=== PATIENT | female | born 1970 | race Caucasian/White ===

== ENCOUNTER 2023-12-28 08:51 | Outpatient (RCR) | payer OTHER, SELFPAY | END 2024-01-29 12:19 | disposition home or self-care (01) | LOC: PT 08:51 | PROVIDERS: PCP Family Medicine; Visit Provider Family Medicine | DX: M25.512 Pain in left shoulder (principal) | CPT/HCPCS: 97014; 97035; 97110; 97140; 97161 ==

== ENCOUNTER 2024-01-20 20:35 | Outpatient (REF) | payer OTHER, SELFPAY ==
[2024-01-25 16:09] LABS: Age Gdln ACOG Testing Note (.); HPV Aptima Negative (Negative); IGP, Aptima HPV, rfx 16/18,45 Note (.)
== END 2024-01-20 20:36 | disposition home or self-care (01) ==
LOC: LAB 20:35
PROVIDERS: PCP Family Medicine; Visit Provider Physician Assistant
DX: Z01.419 Encounter for gynecological examination (general) (routine) without abnormal findings (principal)
CPT/HCPCS: 87624; G0145

== ENCOUNTER 2024-02-15 15:38 | Outpatient (OUT) | payer OTHER, SELFPAY ==
--- NOTE | 2024-02-15 15:41 | XR_ITS ---
[address] [address] Patient Name: MEREDITH BAILEY MRN: [id number] date: 1970 Sex: F Assigned Patient Location: [facility] Current Patient Location: [facility] Accession/Order Number: [id number] Exam Date: 02/15/2024 16:00 Report Date: 02/15/2024 20:10 At the request of: DARINEL CASTILLO Procedure: XR DEXA axial skeleton EXAM: XR DEXA axial skeleton HISTORY: Postmenopausal state; Z78.0. COMPARISON: None. TECHNIQUE: Routine DEXA scan lumbar spine and bilateral hips. FINDINGS: L1-L4: BMD 1.153 g/sq cm and T score -0.2. Left femoral neck: BMD 0.874 g/sq cm and T score -1.2. Left hip total: BMD 1.015 g/sq cm and T score 0.1. Right femoral neck: BMD 0.912 g/sq cm and T score -0.9. Right hip total: BMD 1.060 g/sq cm and T score 0.4. XR/XR DEXA axial skeleton IMPRESSION: Osteopenia. Electronically authenticated by: MILI GUZMÁN Date: 02/15/2024 20:10
--- NOTE | 2024-02-15 15:41 | MM_ITS ---
Patient Name: MEREDITH BAILEY MR#: [id number] : 1970 Exam Date: 02/15/2024 Ordering Doctor: AIDAN CASTILLO . RADIOLOGY REPORT PROCEDURE: MM TOMOSYNTHESIS SCREENING BI COMPARISON: None. INDICATIONS: screening Calculator Name NCI Breast Cancer Risk Assessment Tool 5 Year Breast Cancer Risk 0.90% Lifetime Breast Cancer Risk 6.80% Personal Breast Cancer No Personal Ovarian Cancer No Treatments None Family Cancers Father with colon cancer at age 60. LOCATION: [facility] BREAST COMPOSITION: Heterogeneously dense,which may obscure small masses. FINDINGS: DIAGNOSTIC CATEGORY 2--BENIGN FINDING. NO CHANGE FROM COMPARISON. Scattered benign-appearing nodules are present. Scattered benign-appearing calcifications are present. Scattered benign-appearing lymph nodes are present. RIGHT BREAST: No significant suspicious finding. LEFT BREAST: No significant suspicious finding. RECOMMENDATIONS: ROUTINE MAMMOGRAM AND CLINICAL EVALUATION IN 12 MONTHS. PLEASE NOTE: A NORMAL MAMMOGRAM DOES NOT EXCLUDE THE POSSIBILITY OF BREAST CANCER. A CLINICALLY SUSPICIOUS PALPABLE LUMP SHOULD BE BIOPSIED. Dictated by: Dionicio Diop MD on 02/16/2024 at 09:57 Approved by: Dionicio Diop MD on 02/16/2024 at 09:59
--- OUTSIDE RECORDS SUMMARY | 2024-02-15 16:03 | XMS_ITS | CCD ---
Author Organization [facility] Care Team Providers Care Chucking Machine Set Up Operator Tool Name Role Phone Glenn Mar Primary Care Physician DARINEL CASTILLO Attending Unavailable MD Glenn Mar Attending Unavailable MD Glenn Mar Attending Unavailable MD Glenn Mar Attending Unavailable MD Glenn Mar Admitting Unavailable MD Glenn Mar Referring Unavailable MD Glenn Mar Attending Unavailable Medications Current Medications Medication Drug Class(es) Dates Sig (Normalized) Sig (Original) naproxen 500 mg oral tablet (1 source) Nonsteroidal Anti-inflammatory Drug Start: 12-21-2023 take 1 tablet by mouth twice daily naproxen 500 mg Tab 500 mg = 1 tab(s), Oral, BID, # 60 tab(s), Refills(s) 0, Pharmacy: [facility]/pharm[facility] #[id number], 159, cm, 12/21/23 10:41:00 EST, Height/Length Dosing, 79.9, kg, 12/21/23 10:41:00 EST, Weight Dosing Start Date: 12/21/23 Status: Ordered omeprazole 40 mg delayed release oral capsule (1 source) Proton Pump Inhibitor Start: 12-21-2023 take 1 capsule by mouth once daily omeprazole 40 mg Cap-DR 40 mg = 1 cap(s), Oral, Daily, # 90 cap(s), Refills(s) 0, Pharmacy: [facility]/pharm[facility] #[id number], 159, cm, 12/21/23 10:41:00 EST, Height/Length Dosing, 79.9, kg, 12/21/23 10:41:00 EST, Weight Dosing Start Date: 12/21/23 Status: Ordered Problems Problem Classification Problem Date Documented Da te Episodic/Chronic Esophageal disorders (1 source) Gastroesophageal reflux disease without esophagitis 12-21-2023 Chronic Other circulatory disease (1 source) Elevated blood-pressure reading without diagnosis of hypertension 12-21-2023 Episodic Other connective tissue disease (1 source) Biceps tendinitis 12-21-2023 Episodic Other connective tissue disease (1 source) Trochanteric bursitis 12-21-2023 Episodic Substance-related disorders (1 source) Cigarette smoker 12-21-2023 Chronic Unclassified (1 source) Pain of left shoulder region 12-21-2023 Unclassified (1 source) Patient encounter status 12-21-2023 Results Test Name Value Interpretation Reference Range Facil ity Ambulatory Visit Summaryon 0 01-31-2024 Ambulatory Visit Summary MEREDITH BAILEY :1970 Visit Date:01/31/2024 Ambulatory Visit Instructions Your Diagnosis HTN (hypertension) BMI 33.0-33.9,adult Class 1 obesity due to excess calories in adult Former smoker GERD without esophagitis Your Care Team Attending Physician - Glenn Mar MD Primary Care Physician - Glenn Mar MD This Is Your Medications List losartan (losartan 100 mg Tab) Contact prescribing physician if questions or concerns naproxen (naproxen 500 mg Tab) omeprazole (omeprazole 40 mg Cap-DR) Procedures Performed Appendectomy, Tonsillectomy. Discharge Vitals Temperature (Temporal Artery) 36.3 ?C Heart Rate (Peripheral) 82 Respiratory Rate 16 Blood Pressure 150/94 Height 159 cm Height 63 in Weight 84.3 kg Weight 185.46 lb BMI 33.35 What to do next Scheduled Follow-Up Appointments Wednesday 3:45 PM EDT With: Glenn Mar MD Where: [facility] [place] [facility] Family Medicine Office/Clini c Noteon 01-31-2024 Family Medicine Office/Clinic Note HPI Staff Meredith is a 53 year old female presenting for follow up gerd and bp Here for follow up on GERD. Melena? no Dysphagia? no Weight loss? no Persistent vomiting? no Have you ever had an EGD? no Refill needed?: no Patient is here for follow up bp, OLIVERIO elevated but patient was in pain and new to the practice. If elevated today to start losartan How often are you checking your blood pressure? Doesnt check BP at home What are your average readings? N/A, Not checking at home Yearly BMP: none flu: refused. questions/concerns: had her yearly pap and at gyne office BP was still high has a bump on her left heel, been there for months, sometimes painful, what can she do about it? showed it to you at last OV would like the results of her scan negative, I advised her. she saw it on the portal but wasn't sure History of Present Illness - GERD has improved - Still having issues with pain in the L shoulder and L heel. - BPs are elevated. Review of Systems PHQ Score Initial Depression Screen Score: 0 SCORE Physical Exam Vitals & Measurements T: 36.3 ?C(Temporal Artery) HR: 82(Peripheral) RR: 16 BP: 150/94 SpO2: 98% HT: 63 in HT: 159 cm WT: 84.3 kg WT: 185.46 lb BMI: 33.35 General: alert, no acute distress ENMT: oral mucosa moist, Cardiovascular: regular rate and rhythm, normal peripheral perfusion Respiratory: Lungs CTA, respirations non labored Extremities: no deformity, no trauma Neurological: oriented x 4, LOC appropriate for age, CN II-XII intact, motor strength equal & normal bilaterally, speech normal, Diminished ROM of the L shoulder. Abdomen: Soft, Nontender, Non-distended, + BS Assessment/Plan 1. HTN (hypertension) (I10: Essential (primary) hypertension) - Still elevated. - Will start Losartan 2. Shoulder pain, left (M25.512: Pain in left shoulder) - Will send to ortho for injections. - This way the heel and the shoulder can be injected. - Pt has multiple areas of pain as well. 3. GERD without esophagitis (K21.9: Gastro-esophageal reflux disease without esophagitis) - Well controlled at this time. 4. BMI 33.0-33.9,adult (Z68.33: Body mass index [BMI] 33.0-33.9, adult) - BMI education given 5. Class 1 obesity due to excess calories in adult (E66.09: Other obesity due to excess calories) - Diet and exercise advised 6. Former smoker (Z87.891: Personal history of nicotine dependence) - Please continue to not smoke. Orders: losartan, 100 mg = 1 tab(s), Oral, Daily, # 90 tab(s), Refills(s) 0, Pharmacy: [facility]/pharmacy #[id number], 159, cm, 01/31/24 15:55:00 EST, Height/Length Dosing, 84.3, kg, 01/31/24 15:55:00 EST, Weight Dosing Follow-up No qualifying data available Patient Education BMI for Adults Problem List/Past Medical History Ongoing Biceps tendinitis Cigarette smoker within last 12 months Colon cancer screening GERD without esophagitis Greater trochanteric bursitis of left hip HTN (hypertension) Shoulder pain, left Historical No qualifying data Procedure/Surgical History Appendectomy, Tonsillectomy. Medications losartan 100 mg Tab, 100 mg= 1 tab(s), Oral, Daily naproxen 500 mg Tab, See Instructions omeprazole 40 mg Cap-DR, 40 mg= 1 cap(s), Oral, Daily Allergies No Known Allergies Social History Tobacco Former smoker, quit more than 30 days ago Tobacco Use:. Cigarettes, Household tobacco concerns: No., 01/31/2024 Family History Cancer: Father. Diabetes mellitus type 2: Father. Hypertension: Mother. Primary malignant neoplasm of colon: Father. Immunizations Vaccine Date Status SARS-CoV-2 (COVID-19) mRNA BNT-162b2 vax 04/03/2021 Recorded SARS-CoV-2 (COVID-19) mRNA BNT-162b2 vax 03/13/2021 Recorded [facility] Comment on above: Result Comment: Elec tronically Signed By: Zaid SPIVEY, Glenn Jean\.br\Date and Time Signed: 01/31/24 16:22 EST PT - Progress Noteson 2023 PT - Progress Notes [id number] #1.00TIFF [facility] Patient Educationon 01-31-20 24 Patient Education Nutrition BMI for Adults What is BMI? Body mass index (BMI) is a number that is calculated from a person's weight and height. BMI can help estimate how much of a person's weight is composed of fat. BMI does not measure body fat directly. Rather, it is an alternative to procedures that directly measure body fat, which can be difficult and expensive. BMI can help identify people who may be at higher risk for certain medical problems. What are BMI measurements used for? BMI is used as a screening tool to identify possible weight problems. It helps determine whether a person is obese, overweight, a healthy weight, or underweight. BMI is useful for: ? Identifying a weight problem that may be related to a medical condition or may increase the risk for medical problems. ? Promoting changes, such as changes in diet and exercise, to help reach a healthy weight. BMI screening can be repeated to see if these changes are working. How is BMI calculated? BMI involves measuring your weight in relation to your height. Both height and weight are measured, and the BMI is calculated from those numbers. This can be done either in [place]ese ([place] or metric measurements. Note that charts and online BMI calculators are available to help you find your BMI quickly and easily without having to do these calculations yourself. To calculate your BMI in [place]ese ([place] measurements: 1. Measure your weight in pounds (lb). 2. Multiply the number of pounds by 703. ? For example, for a person who weighs 180 lb, multiply that number by 703, which equals 126,540. 3. Measure your height in inches. Then multiply that number by itself to get a measurement called inches squared. ? For example, for a person who is 70 inches tall, the inches squared measurement is 70 inches x 70 inches, which equals 4,900 inches squared. 4. Divide the total from step 2 (number of lb x 703) by the total from step 3 (inches squared): 126,540 ? 4,900 = 25.8. This is your BMI. To calculate your BMI in metric measurements: 1. Measure your weight in kilograms (kg). 2. Measure your height in meters (m). Then multiply that number by itself to get a measurement called meters squared. ? For example, for a person who is 1.75 m tall, the meters squared measurement is 1.75 m x 1.75 m, which is equal to 3.1 meters squared. 3. Divide the number of kilograms (your weight) by the meters squared number. In this example: 70 ? 3.1 = 22.6. This is your BMI. What do the results mean? BMI charts are used to identify whether you are underweight, normal weight, overweight, or obese. The following guidelines will be used: ? Underweight: BMI less than 18.5. ? Normal weight: BMI between 18.5 and 24.9. ? Overweight: BMI between 25 and 29.9. ? Obese: BMI of 30 or above. Keep these notes in mind: ? Weight includes both fat and muscle, so someone with a muscular build, such as an athlete, may have a BMI that is higher than 24.9. In cases like these, BMI is not an accurate measure of body fat. ? To determine if excess body fat is the cause of a BMI of 25 or higher, further assessments may need to be done by a health care provider. ? BMI is usually interpreted in the same way for men and women. Where to find more information For more information about BMI, including tools to quickly calculate your BMI, go to these websites: ? Centers for Disease Control and Prevention: www.cdc.gov ? [place] Heart Association: www.heart.org ? National Heart, Lung, and Blood [place]: www.nhlbi.nih.gov Summary ? Body mass index (BMI) is a number that is calculated from a person's weight and height. ? BMI may help estimate how much of a person's weight is composed of fat. BMI can help identify those who may be at higher risk for certain medical problems. ? BMI can be measured using Burmese measurements or metric measurements. ? BMI charts are used to identify whether you are underweight, normal weight, overweight, or obese. This information is not intended to replace advice given to you by your health care provider. Make sure you discuss any questions you have with your health care provider. Document Revised: 08/07/2020 Document Reviewed: 06/14/2020 MD [facility] Patient Education ? 2022 [employer]. [facility] CT Chest, Low Dose Screening on 12-31-2023 CT Chest, Low Dose Screening Exam Date/Time: 12/31/2023 09:00 EST Reason for Exam: Z87.891;Screening Report IMPRESSION: LUNG RADS CATEGORY 1: NEGATIVE. NO NODULES AND/OR DEFINITELY BENIGN NODULES. CONTINUE ANNUAL SCREENING WITH SCREENING CT CHEST IN [address] IMAGING OF THE CHEST WITHOUT INTRAVENOUS CONTRAST MEDIUM. HISTORY: Tobacco use. TECHNICAL FACTORS: Low dose CT imaging of the chest was obtained and formatted as 2.5 mm contiguous axial images from the thoracic inlet through the adrenal glands. Sagittal and coronal reconstructions obtained during postprocessing. Intravenous contrast medium: None. Comparison: None FINDINGS: Right lung: No nodules, masses, consolidation, pleural effusion, pneumothorax. Left lung: No nodules, masses, consolidation, pleural effusion, pneumothorax. Lymph nodes: No hilar, mediastinal, or axillary lymph node enlargement. Thoracic aorta: Normal in course and caliber. Cardiac: Size normal. No pericardial effusion. No coronary artery calcification. Upper abdomen:Limited imaging upper abdomen shows small hiatal hernia. Musculoskeletal:No osteoblastic, and no osteolytic lesions. All CT scans at this facility use dose modulation, iterative reconstruction, and/or weight based dosing when appropriate to reduce radiation dose to as low as reasonably achievable. Report Ordering Provider: Glenn Mar FINAL REPORT Dictated: 12/31/2023 2:43 pm Eron Oliver MD Signed (Electronic Signature): 12/31/2023 2:43 pm Signed by: Eron Oliver MD Transcribed by: ELIEZER Technologist: GENEVIEVE [facility] Consent for Treatmenton Consent for Treatment [id number] #1.00TIFF [facility] Plan of Care - PT/OT/Speecho n 12-30-2023 Plan of Care - PT/OT/Speech [id number] #1.00TIFF [facility] Family Medicine Office/Clini c Noteon 12-23-2023 Family Medicine Office/Clinic Note HPI Staff Meredith is a 53 year old female presenting to [facility] care Establish Care: History: Any previous diagnosis: Asthma Childhood History of seeing any specialist: When was your last doctors visit: Last provider: none in 20 years Any recent labs: none in over 20 years Health Maintenance UTD: Colonoscopy: no Mammogram: over 10 years, normal Pelvic/Pap: over 10 years . has one set up for 01/02/24 flu: Refused Acute: Current issues/complaints: Pt states 01/2023 started having dull ache in chest and feeling tired would lay down and then sleep for a few hours wake up and feel better. Did have some numbness to left hand/wrist a few times when she has the chest discomfort. Pt does states has had long time over 25 years dealing with acid reflux and it has been getting worse having it daily and has been taking tums when to bad usually 3 times a week other than that she suffers through it. She has vomited a few times when it was bad. With eating intermittently will feel like things get stuff middle chest (meat, bread) will drink more water and it hurts and can feel the food going down. Burning middle chest is getting worse and when applying pressure to mid chest it does ease the burning. Pt feeling extremely fatigued. Pt stopped smoking 12/21/23 has been smoking since she was 14 2 months ago noticed lump left back of foot c/o pain with touch or any pressure. Pt having Left hip pain and left shoulder pain History of Present Illness Meredith Bailey is a 53-year-old female who presents today for an evaluation. The patient has been experiencing issues with GERD for a long time. Whenever she gets heartburn, she can feel it in her lower chest, stomach, and rib cage and tends to go all the way up. She has vomited in the past due to GERD. She states that she drinks alcohol occasionally but drinks a lot of tea and root beer. She used to drink a lot of soda but has quit drinking it. She mentions that she drinks water or tea most of the time. The patient fell on ice on her parents' concrete steps back in the s. She landed on her left elbow and has had trouble with it ever since. She is feeling pain in her clavicle, and it occasionally aches at night. She reports never going to the doctor then. 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 Her movements at work are different depending on the task but she is usually pulling. She cannot wear a bra because it puts pressure on her arm making it go numb. She is left-handed. The patient also reports pain in her left hip. The patient also has experienced occasional heel pain in the last couple of months. She reports that pain is occasionally exacerbated by movements, usually when at work wearing her work shoes. She only looked at the area when it started hurting. The patient's blood pressure is elevated today. She does not check her blood pressure at home. She reports feeling tired all the time but has no other concerns at this time. She has not seen a doctor in the past 20 years. The patient has quit smoking. Review of Systems PHQ Score Initial Depression Screen Score: 0 SCORE Physical Exam Vitals & Measurements HR: 86(Peripheral) RR: 18 BP: 168/102 SpO2: 98% HT: 63 in HT: 159 cm WT: 79.9 kg WT: 175.78 lb BMI: 31.6 General: alert, no acute distress Cardiovascular: regular rate and rhythm, normal peripheral perfusion Respiratory: Lungs CTA, respirations non labored Extremities: no deformity, no trauma Neurological: oriented x 4, LOC appropriate for age, CN II-XII intact, motor strength equal & normal bilaterally, speech normal Musculoskeletal: The patient is tender to palpation over the bicipital groove. The patient is tender to palpation over the left greater trochanteric bursa on the left bicipital groove. Procedure S Assessment/Plan 1. GERD without esophagitis (K21.9: Gastro-esophageal reflux disease without esophagitis) At this time, we will start with a PPI. Discussed how to use the PPI. Discussed diet and exercise changes and lifestyle modification that will help with GERD. We will check the patient back in 2 to 6 weeks depending on what fits with her schedule. 2. Elevated BP without diagnosis of hypertension (R03.0: Elevated blood-pressure reading, without diagnosis of hypertension) We will hold off on starting any blood pressure medication. This is the first time the patient has seen me, and the patient is in pain. If the patient's blood pressure is still elevated at that next visit, we will start losartan and we will probably go to a 2-combo medication depending on if the systolic is still above 160 mmHg and if the diastolic is still above 100 mmHg. 3. Greater trochanteric bursitis of left hip (M70.62: Trochanteric bursitis, left hip) We will do naproxen at this time. Discussed naproxen and omeprazole and how it can cause worsening of GERD. Discussed how the omeprazole may need to be increased moving forward. 4. Biceps tendinitis (M75.20: Bicipital tendinitis, uns (more content not included)... [facility] Comment on above: Result Comment: Elec tronically Signed By: Glenn Mar MD\.br\Date and Time Signed: 12/23/23 11:45 EST\.br\Electronically Co-Signed By: Angie Chand\.br\Date and Time Co-Signed: 12/21/23 14:00 EST\.br\Electronically Co-Signed By: Harmony Smith.br\Date and Time Co-Signed: 12/22/23 10:45 EST Insurance Correspondenceon 0 12-23-2023 Insurance Correspondence [id number]#1.00TIFF [facility] Physician Orderon 12-23-2023 Physician Order [id number] #1.00TIFF [facility] Ambulatory Visit Summaryon 0 12-21-2023 Ambulatory Visit Summary MEREDITH BAILEY :1970 [id number] Visit Date:12/21/2023 Ambulatory Visit Instructions Your Diagnosis BMI 31.0-31.9,adult Non-smoker GERD without esophagitis Colon cancer screening Elevated BP without diagnosis of hypertension Your Care Team Attending Physician - Glenn Mar MD Primary Care Physician - Glenn Mar MD Procedures Performed Appendectomy, Tonsillectomy. Discharge Vitals Heart Rate (Peripheral) 86 Respiratory Rate 18 Blood Pressure 168/102 Height 159 cm Height 63 in Weight 79.9 kg Weight 175.78 lb BMI 31.6 What to do next Scheduled Follow-Up Appointments Wednesday 4:00 PM EST With: Glenn Mar MD Where: [facility] Patient Educationon 12-21-19 Patient Education Nutrition BMI for Adults What is BMI? Body mass index (BMI) is a number that is calculated from a person's weight and height. BMI can help estimate how much of a person's weight is composed of fat. BMI does not measure body fat directly. Rather, it is an alternative to procedures that directly measure body fat, which can be difficult and expensive. BMI can help identify people who may be at higher risk for certain medical problems. What are BMI measurements used for? BMI is used as a screening tool to identify possible weight problems. It helps determine whether a person is obese, overweight, a healthy weight, or underweight. BMI is useful for: ? Identifying a weight problem that may be related to a medical condition or may increase the risk for medical problems. ? Promoting changes, such as changes in diet and exercise, to help reach a healthy weight. BMI screening can be repeated to see if these changes are working. How is BMI calculated? BMI involves measuring your weight in relation to your height. Both height and weight are measured, and the BMI is calculated from those numbers. This can be done either in [place]ese ([place] or metric measurements. Note that charts and online BMI calculators are available to help you find your BMI quickly and easily without having to do these calculations yourself. To calculate your BMI in [place] ([place] measurements: 1. Measure your weight in pounds (lb). 2. Multiply the number of pounds by 703. ? For example, for a person who weighs 180 lb, multiply that number by 703, which equals 126,540. 3. Measure your height in inches. Then multiply that number by itself to get a measurement called inches squared. ? For example, for a person who is 70 inches tall, the inches squared measurement is 70 inches x 70 inches, which equals 4,900 inches squared. 4. Divide the total from step 2 (number of lb x 703) by the total from step 3 (inches squared): 126,540 ? 4,900 = 25.8. This is your BMI. To calculate your BMI in metric measurements: 1. Measure your weight in kilograms (kg). 2. Measure your height in meters (m). Then multiply that number by itself to get a measurement called meters squared. ? For example, for a person who is 1.75 m tall, the meters squared measurement is 1.75 m x 1.75 m, which is equal to 3.1 meters squared. 3. Divide the number of kilograms (your weight) by the meters squared number. In this example: 70 ? 3.1 = 22.6. This is your BMI. What do the results mean? BMI charts are used to identify whether you are underweight, normal weight, overweight, or obese. The following guidelines will be used: ? Underweight: BMI less than 18.5. ? Normal weight: BMI between 18.5 and 24.9. ? Overweight: BMI between 25 and 29.9. ? Obese: BMI of 30 or above. Keep these notes in mind: ? Weight includes both fat and muscle, so someone with a muscular build, such as an athlete, may have a BMI that is higher than 24.9. In cases like these, BMI is not an accurate measure of body fat. ? To determine if excess body fat is the cause of a BMI of 25 or higher, further assessments may need to be done by a health care provider. ? BMI is usually interpreted in the same way for men and women. Where to find more information For more information about BMI, including tools to quickly calculate your BMI, go to these websites: ? Centers for Disease Control and Prevention: www.cdc.gov ? [place] Heart Association: www.heart.org ? National Heart, Lung, and Blood [place]: www.nhlbi.nih.gov Summary ? Body mass index (BMI) is a number that is calculated from a person's weight and height. ? BMI may help estimate how much of a person's weight is composed of fat. BMI can help identify those who may be at higher risk for certain medical problems. ? BMI can be measured using Burmese measurements or metric measurements. ? BMI charts are used to identify whether you are underweight, normal weight, overweight, or obese. This information is not intended to replace advice given to you by your health care provider. Make sure you discuss any questions you have with your health care provider. Document Revised: 08/07/2020 Document Reviewed: 06/14/2020 MD [facility] Patient Education ? 2022 [employer]. [facility] Encounters Encounter Date Encounter Type Care Provider Facility Start: 03-14-2024 ambulatory MD Glenn Mar Facil ity:[facility] [place] Start: 01-31-2024 ambulatory MD Glenn Mar Facil ity:[facility] [place] Start: 01-20-2024 End: 01-20-2024 ambulatory DARINEL CASTILLO Not Available Start: 12-31-2023 End: 01-01-2024 ambulatory MD Glenn Mar [facility] Start: 12-31-2023 End: 12-31-2023 Patient encounter procedure Glenn Mar [facility] Start: 12-21-2023 End: 12-22-2023 ambulatory MD Glenn Mar Facility:[facility] [place] Start: 12-15-2023 ambulatory MD Glenn Mar Facility :[facility] [place] Procedures Date Procedure Procedure Detail Performing Clinician Appendectomy Glenn Mar Tonsillectomy Glenn Mar Immunizations Immunization Date Immunization Notes Care Provider Fa cility 04-03-2021 SARS-CoV-2 (COVID-19 ) mRNA BNT-162b2 vashireen Elizabeth Zaid [facility] 03-13-2021 SARS-CoV-2 (COVID-19 ) mRNA BNT-162b2 vax Glennjoana Mar [facility] Payers Date Payer Category Payer Unknown [id number] 1970 Unknown [id number] 2.16.84 [id number] 1970 Unknown [id number] 2.16.8 [id number] 1970 Unknown [id number] 2.16.8 [id number] 1970 Unknown [id number] 2.16.8 [id number] 1970 Unknown [id number] 2.16.8 [id number] 1970 Unknown [id number] 2.16.8 [id number] Social History Date Type Detail Facility Start: 12-21-2023 Tobacco smoking status Ex-smoker (fi nding) [facility] Sex Assigned At Female [facility] Evaluation + Plan note Note Date & Type Note Facility Evaluation + Plan note Future Appointments Appointment Date:01/31/2024 04:00:00 PM Scheduled Provider:Glenn Mar MD Location:[facility] Appointment Type:[facility] Hospital course Narrative Note Date & Type Note Facility Hospital course Narrative No data available for this section [facility] Hospital Discharge instructions Note Date & Type Note Facility Hospital Discharge instructions No data available for this section [facility] Progress note Note Date & Type Note Facility Progress note No data available for this section [facility] Summary Purpose Family History No Family History Records Found Advance Directives No Advanced Directives Records FoundNo Advanced Directives Records Found Additional Source Comments Patient Care team informatio n (unrecognized section and content) Personnel Name: Glenn Mar MD Address: Address: [address] [place] [address]- INFORMATION SOURCE (unrecogn ized section and content) DATE CREATED AUTHOR 01/28/2024 [facility] DATE CREATED AUTHOR AUTHOR'S ORGANIZ ATION 01/31/2024 [facility] FOR RECORDS PERTAINING TO PATIENTS WHO ARE OR HAVE BEEN ENROLLED IN A CHEMICAL DEPENDENCY/SUBSTANCEABUSE PROGRAM, SOME INFORMATION MAY BE OMITTED. This clinical summary was aggregated from multiple sources. Caution should be exercised in using it in the provision of clinical care. This summary normalizes information from multiple sources, and as a consequence, information in this document may materially change the coding, format and clinical context of patient data. In addition, data may be omitted in some cases. CLINICAL DECISIONS SHOULD BE BASED ON THE PRIMARY CLINICAL RECORDS. [facility] provides no warranty or guarantee of the accuracy or completeness of information in this document.
== END 2024-02-15 15:39 | disposition home or self-care (01) ==
LOC: MAMMO 15:38
PROVIDERS: PCP Family Medicine; Visit Provider Physician Assistant
DX: Z12.31 Encounter for screening mammogram for malignant neoplasm of breast (principal); Z80.0 Family history of malignant neoplasm of digestive organs; Z78.0 Asymptomatic menopausal state; M85.80 Other specified disorders of bone density and structure, unspecified site
CPT/HCPCS: 77063; 77067; 77080

== ENCOUNTER 2025-01-24 20:50 | Outpatient (REF) | payer OTHER, SELFPAY ==
--- OUTSIDE RECORDS SUMMARY | 2025-01-24 20:55 | XMS_ITS | CCD ---
Author Organization [facility] Care Team Providers Care Radio Station Manager Name Role Phone Glenn Mar Primary Care Physician [phone] DARINEL CASTILLO Attending Unavailable IGOR Hu Attending Provider NO FAMILY, PHYSICIAN Primary Care Unavailable Primitivo Hu Admitting Unavailab Primitivo Chavez Attending Unavailab Glenn Lenz Admitting Unavailable Glenn Mar Attending Unavailable Glenn Mar Attending Unavailable Glenn Mar Attending Unavailable Glenn Mar Attending Unavailable Glenn Mar Attending Unavailable Glenn Mar Attending Unavailable Glenn Mar Attending Unavailable Glenn Mar Attending Unavailable Glenn Mar Referring Unavailable Glenn Mar Admitting Unavailable Glenn Mar Attending Unavailable Korey Mcguire Referring Unavaila ble Korey Mcguire Attending Unavaila ble Korey Mcguire Talal Admitting Unavaila Korey Feliciano Attending Unavaila ble SarminiKorey Talal Attending Unavaila ble SarminiKorey Talal Referring Unavaila ble SarminiKorey Talal Admitting Unavaila ble Korey Mcguire Attending Unavaila ble Medications Current Medications Medication Drug Class(es) Dates Sig (Normalized) Sig (Original) {1 (Ascorbic Acid 7540 MG / POLYETHYLENE GLYCOL 3350 95688 MG / Potassium Chloride 1200 MG / Sodium Ascorbate 83834 MG / Sodium Chloride 3200 MG Powder for Oral Solution) / 1 (POLYETHYLENE GLYCOL 3350 441822 MG / Potassium Chloride 1000 MG / Sodium Chlori (2 sources) Osmotic Laxative, Vitamin C Start: 5 Plenvu oral powder for reconstitution See Instructions, 1 EA, Refill(s) 0, See physicians instructions prior to procedure., [facility]/pharmacy #[id number], 158, cm, 12/14/24 14:23:00 EST, Height/Length Dosing, 92.7, kg, 12/14/24 14:23:00 EST, Weight Dosing Start Date: 12/15/24 Status: Ordered atorvastatin 40 mg oral tablet (3 sources) HMG-CoA Reductase Inhibitor Start: 4 take 1 tablet by mouth once daily Lipitor 40 mg Tab 40 mg = 1 tab(s), Oral, Daily, Please take at night, # 90 tab(s), Refills(s) 0, Pharmacy: [facility]/pharmacy #[id number], 158.9, cm, 10/23/24 15:29:00 EST, Height/Length Dosing, 93.2, kg, 10/23/24 15:29:00 EST, Weight Dosing Start Date: 10/30/24 Status: Ordered Calcium Carbonate (4 sources) Start: 4 take 1 tablet by mouth once daily Caltrate 600 + D 1 tab(s), Oral, Daily, Refill(s) 0 Start Date: 03/15/24 Status: Ordered hydroCHLOROthiazide 25 mg oral tablet (4 sources) Thiazide Diuretic Start: 4 take 1 tablet by mouth once daily hydrochlorothiazide 25 mg Tab See Instructions, TAKE 1 TABLET BY MOUTH EVERY DAY, # 90 tab(s), Refills(s) 1, Pharmacy: [id number], 158.9, cm, 04/13/24 15:23:00 EDT, Height/Length Dosing, 84.3, kg, 04/13/24 15:23:00 EDT, Weight Dosing Start Date: 10/05/24 Status: Ordered losartan potassium 100 mg oral tablet (4 sources) Angiotensin 2 Receptor Tom Start: 4 take 1 tablet by mouth once daily losartan 100 mg Tab See Instructions, TAKE 1 TABLET BY MOUTH EVERY DAY, # 30 tab(s), Refills(s) 5, Pharmacy: [id number], 158.9, cm, 04/13/24 15:23:00 EDT, Height/Length Dosing, 84.3, kg, 04/13/24 15:23:00 EDT, Weight Dosing Start Date: 09/04/24 Status: Ordered naproxen 500 mg oral tablet (1 source) Nonsteroidal Anti-inflammator y Drug Start: 4 take 1 tablet by mouth twice daily naproxen 500 mg Tab 500 mg = 1 tab(s), Oral, BID, # 60 tab(s), Refills(s) 0, [id number], cm, 12/21/23 10:41:00 EST, Height/Length Dosing, 79.9, kg, 12/21/23 10:41:00 EST, Weight Dosing Start Date: 12/21/23 Status: Ordered omeprazole 40 mg delayed release oral capsule (5 sources) Proton Pump Inhibitor Start: 4 take 1 capsule by mouth once daily omeprazole 40 mg Cap-DR See Instructions, TAKE 1 CAPSULE BY MOUTH EVERY DAY, # 90 cap(s), Refills(s) 1, Pharmacy: [id number], 158.9, cm, 04/13/24 15:23:00 EDT, Height/Length Dosing, 84.3, kg, 04/13/24 15:23:00 EDT, Weight Dosing Start Date: 09/18/24 Status: Ordered Start: 12-21-2023 take 1 capsule by mo [facility] once daily omeprazole 40 mg Cap-DR 40 mg = 1 cap(s), Oral, Daily, # 90 cap(s), Refills(s) 0, [id number] 159, cm, 12/21/23 10:41:00 EST, Height/Length Dosing, 79.9, kg, 12/21/23 10:41:00 EST, Weight Dosing Start Date: 12/21/23 Status: Ordered Problems Problem Classification Problem Date Documented Date Episodic/Chronic Crushing injury or internal injury (1 source) Crushing injury of right middle finger, initial encounter; Translations: [Crushing injury of right middle finger, initial encounter] Onset: 04-20-2024 Episodic Deficiency and other anemia (3 sources) Anemia 10-25-2024 Episodic Disorders of lipid metabolism (3 sources) Hyperlipidemia 10-25-2024 Chronic Esophageal disorders (6 sources) Gastroesophageal reflux disease without esophagitis; Translations: [Gastro-esophageal reflux disease without esophagitis] Onset: 12-13-2024 12-21-2023 Chronic Essential hypertension (4 sources) Hypertensive disorder 01-31-2024 Chronic Other bone disease and musculoskeletal deformities (4 sources) Osteopenia 02-17-2024 Episodic Other circulatory disease (1 source) Elevated blood-pressure reading without diagnosis of hypertension 12-21-2023 Episodic Other connective tissue disease (5 sources) Biceps tendinitis 12-21-2023 Episodic Other connective tissue disease (5 sources) Trochanteric bursitis 12-21-2023 Episodic Other screening for suspected conditions (not mental disorders or infectious disease) (1 source) Screening for malignant neoplasm of colon done; Translations: [Encounter for screening for malignant neoplasm of colon] Onset: 12-13-2024 Episodic Residual codes; unclassified (1 source) Family history of malignant neoplasm of digestive organ; Translations: [Family history of malignant neoplasm of digestive organs] Onset: 12-13-2024 Episodic Residual codes; unclassified (3 sources) Family history of cancer of colon 12-13-2024 Episodic Substance-related disorders (1 source) Cigarette smoker 12-21-2023 Chronic Unclassified (1 source) Pain of left shoulder region 12-21-2023 Unclassified (9 sources) Patient encounter status 12-21-2023 Results Test Name Value Interpretation Reference Range Facility [place] Gastric Emptying Studyon 12-29-2024 [place] Gastric Emptying Study Exam Date/Time: 12/27/2024 15:56 EST Reason for Exam: Vomiting Report IMPRESSION: NORMAL RATE OF GASTRIC EMPTYING OF A SOLID MEAL. EXAMINATION: [place] Gastric Emptying Study HISTORY: Vomiting. TECHNIQUE: 0.9 mCi Tc-99m sulfur colloid was given orally in a meal of 4 oz egg beaters, 2 slices of toast, 28 g jelly and 120 ml water. RESULT: Static images of the upper abdomen were obtained over 4 hours after the ingestion of the radionuclide. The percent gastric retention at 4 hours measures 2 %. This is a normal gastric emptying rate. There is no evidence of accelerated emptying of gastric contents, with 54% retention at 1 hour (rapid emptying is <30% retention at 1 hour). Ordering Provider: Korey Mcguire FINAL REPORT Dictated: 12/29/2024 5:05 pm Jean Carlos SPIVEY, Amadeo Reid Signed (Electronic Signature): 12/29/2024 5:05 pm Signed by: Amadeo Evangelista MD Transcribed by: ELIEZER Technologist: VINAY Edwards [facility] Surgical Pathology Reporton 12-29-2024 Surgical Pathology Report [facility] [place] [address]- Surgical Pathology Report Collected Date/Time: 12/26/2024 09:52 EST Pathologist: Young SPIVEY PhD, Oumar Sanabria Received Date/Time: 12/26/2024 18:00 EST Maynor SPIVEY, Korey Mcguire MD, Korey Farnsworth 07 Surgical Pathology Report - 12/29/2024 10:30 EST - Auth (Verified) Final Diagnosis A: POLYP X2, SIGMOID COLON, POLYPECTOMY: - SERRATED POLYP. - HYPERPLASTIC POLYP. B: TERMINAL ILEUM, BIOPSY: - MODERATE ACTIVE ILEITIS. - NO GRANULOMA OR DYSPLASIA. (Electronic Signature) Oumar Vidal MD PhD 12/29/2024 10:30 Clinical Information Screening, family history of colon cancer Pre-Op Diagnosis: Screening, family history of colon cancer Procedure: Colonoscopy Post-Op Diagnosis: 1. Small internal hemorrhoids on retroflexion 2. Two sessile polyps in the sigmoid colon, 8 mm polyp resected with cold snare completely and retrieved. One clip was placed to prevent bleeding at the end of the procedure. 15 mm polyp resected using MR technique, injected 5 mL of EverLift, then resected using hot snare completely and retrieved. One clip was placed to prevent delayed bleeding. 3. Multiple small erosions in the terminal ileum, biopsied Specimen(s) Received A.Sigmoid Colon Polyp B.Terminal Ileum Biopsies Gross Description A: Received in formalin labeled with patient name, number, and sigmoid colon polyps x2 are three long/pink polypoid tissue fragments measuring from 0.3 cm up to 1 cm. The two smaller pieces together measure 0.5 x 0.4 x 0.1 cm. The largest piece measures 1 x 0.9 x 0.5 cm. The apparent point of attachment is inked blue. It is trisected and entirely submitted in one cassette. B: Received in formalin labeled with patient name, number, and terminal ileum biopsy are two fragments of long tissue measuring less than 0.1 cm and up to 0.4 cm in greatest dimension. Specimen is entirely submitted in one cassette. (DC) DC:[facility] Microscopic Description Microscopic examination performed unless gross only specified. This report was transcribed using voice recognition technology and might contain unintended computerized technical sales advisor errors. Normal [facility] Comment on above: Performed By: #### [id number] #### [facility] [address] [place] [address] Gastroenterology Office/Clin ic Noteon 12-14-2024 Gastroenterology Office/Clinic Note Gastroenterology Office/Clinic Note Chief Complaint ref by Zaid for HPI Staff New patient is a(n) 54 year old female who was referred by Dr. Mar for a screening colonoscopy. has had some issues with nausea and vomiting, heartburn, pcp put her on omeprazole. not helping the nausea Father had colon cancer. Denies previous EGD/Colonoscopy or Cologuard. Denies n/v/c/d, abd pain, bloody or mucus stools. Blood thinners? no. GLP-1 agonists? no. Laboratory Results CBC CMP Basophil Absolute: 0 E9/L (10/23/24) A/G Ratio: 1.5 (10/23/24) Basophil Auto: 0.6 % (10/23/24) AGAP: 12 mEq/L (10/23/24) Eos Absolute: 0.2 E9/L (10/23/24) Albumin Lvl: 4.2 gm/dL (10/23/24) Eos Auto: 3.1 % (10/23/24) Alk Phos: 97 Int._Unit/L (10/23/24) Hct: 36 % (10/23/24) ALT: 16 Int._Unit/L (10/23/24) HGB: 11.8 gm/dL Low (10/23/24) AST: 23 Int._Unit/L (10/23/24) Lymph Absolute: 2 E9/L (10/23/24) Bili Total: 0.3 mg/dL (10/23/24) Lymph Auto: 25.1 % (10/23/24) BUN: 20 mg/dL (10/23/24) MCH: 28.6 pg (10/23/24) BUN/Creat Ratio: 22 High (10/23/24) MCHC: 32.7 gm/dL (10/23/24) Calcium Lvl: 9 mg/dL (10/23/24) MCV: 87.5 fL (10/23/24) Chloride: 98 mmol/L Low (10/23/24) George Absolute: 0.5 E9/L (10/23/24) CO2: 30 mmol/L (10/23/24) George Auto: 6 % (10/23/24) Creatinine: 0.9 mg/dL (10/23/24) MPV: 8.8 fL (10/23/24) Globulin: 2.8 gm/dL (10/23/24) Neutro Absolute: 5.1 E9/L (10/23/24) Glucose Lvl: 95 mg/dL (10/23/24) Neutro Auto: 65.2 % (10/23/24) Potassium Lvl: 4.3 mmol/L (10/23/24) Platelet: 368 E9/L (10/23/24) Sodium Lvl: 136 mmol/L (10/23/24) RBC: 4.1 E12/L Low (10/23/24) Total Protein: 7 gm/dL (10/23/24) RDW: 14.8 % High (10/23/24) WBC: 7.8 E9/L (10/23/24) History of Present Illness Reviewed HPI collected by staff Review of Systems PHQ Score Initial Depression Screen Score: 0 SCORE All systems reviewed, negative; Except for above Physical Exam Vitals & Measurements HR: 94(Peripheral) RR: 14 BP: 126/90 HT: 62 in HT: 158 cm WT: 92.7 kg WT: 204.368 lb BMI: 37.13 General: in Nad Abdomen: Soft, NTND Assessment/Plan 1. Colon cancer screening (Z12.11: Encounter for screening for malignant neoplasm of colon) Denies constipation. Schedule Colonoscopy to evaluate. Discussed risks vs benefits, pt agreeable. 2. Family history of colon cancer in father (Z80.0: Family history of malignant neoplasm of digestive organs) Father diagnosed between age 40-60. 3. GERD without esophagitis (K21.9: Gastro-esophageal reflux disease without esophagitis) Having heartburn, vomiting. PCP prescribed omeprazole and this helped with the heartburn. She continues to have nausea. She can finish her meals but has vomiting sometimes 10 minutes after eating. She is a former smoke. She drinks alcohol rarely. Takes Excedrin for headaches. Advised to eat small meals. Schedule GES to evaluate. Schedule EGD to evaluate. Discussed risks vs benefits, pt agreeable. I, Bhavani Samuels, personally scribed for Korey Mcguire on 12/14/2024 15:00:57. . Documentation recorded by Sheeba Samuels, accurately reflects the services I performed and decisions made by me. Korey Mcguire MD Follow-up No qualifying data available Problem List/Past Medical History Ongoing Anemia Biceps tendinitis Colon cancer screening Family history of colon cancer in father GERD without esophagitis Greater trochanteric bursitis of left hip HLD (hyperlipidemia) HTN (hypertension) Osteopenia Physical exam Historical No qualifying data Procedure/Surgical History Appendectomy, Tonsillectomy. Medications Caltrate 600 + D, 1 tab(s), Oral, Daily hydrochlorothiazide 25 mg Tab, See Instructions Lipitor 40 mg Tab, 40 mg= 1 tab(s), Oral, Daily losartan 100 mg Tab, See Instructions omeprazole 40 mg Cap-DR, See Instructions Allergies No Known Allergies Social History Alcohol Never., 10/16/2024 Substance Abuse Never., 10/16/2024 Tobacco Former smoker, quit more than 30 days ago Tobacco Use:., 12/14/2024 Former smoker, quit more than 30 days ago Tobacco Use:., 10/23/2024 Family History Cancer: Father. Diabetes mellitus type 2: Father. Hypertension: Mother. Primary malignant neoplasm of colon: Father. Immunizations Vaccine Date Status influenza virus vaccine, inactivated 10/23/2024 Given SARS-CoV-2 (COVID-19) mRNA BNT-162b2 vax 04/03/2021 Recorded SARS-CoV-2 (COVID-19) mRNA BNT-162b2 vax 03/13/2021 Recorded Normal [facility] Comment on above: Result Comment: Elec tronically Signed By: Maynor SPIVEY, Korey Farnsworth\.br\Date and Time Signed: 12/14/24 15:19 EST\.br\Electronically Co-Signed By: Bhavani Samuels MA\.br\Date and Time Co-Signed: 12/14/24 15:07 EST CBC w/ Auto Diffon 4 Basophils/100 WBC (Bld) 0.6 % Normal 0.0-2.0 [facility] Comment on above: Performed By: #### 2 [id number] #### [facility] [address] [place] [address] Basophils/Leukocytes Auto (Bld) [Pure # fraction] 0.0 E9/L Normal 0.0-0.2 [facility] Comment on above: Performed By: #### 2 [id number] #### [facility] [address] [place] [address] Eosinophils (Bld) [#/Vol] 0.2 E9/L Normal 0.0-0.5 [facility] Comment on above: Performed By: #### 2 [id number] #### [facility] [address] [place] [address] Eosinophils/100 WBC (Bld) 3.1 % Normal 0.0-8.0 [facility] Comment on above: Performed By: #### 2 [id number] #### [facility] [address] [place] [address] Erythrocyte distribution width (RBC) [Ratio] 14.8 % High 10.9-14.2 [facility] Comment on above: Performed By: #### 2 [id number] #### [facility] [address] [place] [address] Hematocrit (Bld) [Volume fraction] 36.0 % Normal 34.0-46.0 [facility] Comment on above: Performed By: #### 2 [id number] #### [facility] [address] [place] [address] Hemoglobin (Bld) [Mass/Vol] 11.8 g/dL Low 12.0-16.0 [facility] Comment on above: Performed By: #### 2 [id number] #### [facility] [address] [place] [address] Lymphocytes (Bld) [#/Vol] 2.0 E9/L Normal 1.0-4.0 [facility] Comment on above: Performed By: #### 2 [id number] #### [facility] [address] [place] [address] Lymphocytes/100 WBC (Bld) 25.1 % Normal 14.0-50.0 [facility] Comment on above: Performed By: #### 2 [id number] #### [facility] [address] [place] [address] MCH (RBC) [Entitic mass] 28.6 pg Normal 27.0-34.0 [facility] Comment on above: Performed By: #### 2 [id number] #### [facility] [address] [place] [address] MCHC (RBC) [Mass/Vol] 32.7 g/dL Normal 31.4-36.0 [facility] Comment on above: Performed By: #### 2 [id number] #### [facility] [address] [place] [address] MCV (RBC) [Entitic vol] 87.5 fL Normal 80.0-100.0 [facility] Comment on above: Performed By: #### 2 [id number] #### [facility] [address] [place] [address] Monocytes (Bld) [#/Vol] 0.5 E9/L Normal 0.2-1.0 [facility] Comment on above: Performed By: #### 2 [id number] #### [facility] [address] [place] [address] Neutrophils (Bld) [#/Vol] 5.1 E9/L Normal 2.0-7.5 [facility] Comment on above: Performed By: #### 2 [id number] #### [facility] [address] [place] [address] Neutrophils/100 WBC (Bld) 65.2 % Normal 36.0-75.0 [facility] Comment on above: Performed By: #### 2 [id number] #### [facility] [address] [place] [address] Platelet mean volume (Bld) [Entitic vol] 8.8 fL Normal 6.4-10.8 [facility] Comment on above: Performed By: #### 2 [id number] #### [facility] [address] [place] [address] Platelets (Bld) [#/Vol] 368.0 E9/L Normal 150.0-500.0 [facility] Comment on above: Performed By: #### 2 [id number] #### [facility] [address] [place] [address] RBC (Bld) [#/Vol] 4.1 E12/L Low 4.3-5.9 [facility] Comment on above: Performed By: #### 2 [id number] #### [facility] [address] [place] [address] WBC corrected for nucl RBC Auto (Bld) [#/Vol] 7.8 E9/L Normal 4.0-11.0 [facility] Comment on above: Performed By: #### 2 [id number] #### [facility] [address] [place] [address] CMPon 10-24-2024 Albumin [Mass/Vol] 4.2 g/dL Normal 3.3-5.0 [facility] Comment on above: Performed By: #### 2 [id number] #### [facility] [address] [place] [address] Albumin/Globulin (S) [Mass conc ratio] 1.5 Normal 1.1-2.2 [facility] Comment on above: Performed By: #### 2 [id number] #### [facility] [address] [place] [address] ALP [Catalytic activity/Vol] 97 Int._Unit/L Normal 21-98 [facility] Comment on above: Performed By: #### 2 [id number] #### [facility] [address] [place] [address] ALT No additional P-5'-P [Catalytic activity/Vol] 16 Int._Unit/L Normal 6-46 [facility] Comment on above: Performed By: #### 2 [id number] #### [facility] [address] [place] [address] Anion gap [Moles/Vol] 12 mmol/L Normal 6-16 [facility] Comment on above: Performed By: #### 2 [id number] #### [facility] [address] [place] [address] AST [Catalytic activity/Vol] 23 Int._Unit/L Normal 5-43 [facility] Comment on above: Performed By: #### 2 [id number] #### [facility] [address] [place] [address] Bilirubin [Mass/Vol] 0.3 mg/dL Normal 0.0-1.1 [facility] Comment on above: Performed By: #### 2 [id number] #### [facility] [address] [place] [address] Calcium [Mass/Vol] 9.0 mg/dL Normal 8.9-11.1 [facility] Comment on above: Performed By: #### 2 [id number] #### [facility] [address] [place] [address] Chloride [Moles/Vol] 98 mmol/L Low 101-111 [facility] Comment on above: Performed By: #### 2 [id number] #### [facility] [address] [place] [address] CO2 [Moles/Vol] 30 mmol/L Normal 21-31 [facility] Comment on above: Performed By: #### 2 [id number] #### [facility] [address] [place] [address] Creatinine [Mass/Vol] 0.9 mg/dL Normal 0.5-1.3 [facility] Comment on above: Performed By: #### 2 [id number] #### [facility] [address] [place] [address] Globulin (S) [Mass/Vol] 2.8 g/dL Normal 1.4-4.0 [facility] Comment on above: Performed By: #### 2 [id number] #### [facility] [address] [place] [address] Glucose [Mass/Vol] 95 mg/dL Normal 55-199 [facility] Comment on above: Performed By: #### 2 676854 #### [facility] [address] [place] [address] Potassium [Moles/Vol] 4.3 mmol/L Normal 3.5-5.3 [facility] Comment on above: Performed By: #### 2 [id number] #### [facility] [address] [place] [address] Protein [Mass/Vol] 7.0 g/dL Normal 6.0-7.8 [facility] Comment on above: Performed By: #### 2 [id number] #### [facility] [address] [place] [address] Sodium [Moles/Vol] 136 mmol/L Normal 135-145 [facility] Comment on above: Performed By: #### 2 [id number] #### [facility] [address] [place] [address] Urea nitrogen [Mass/Vol] 20 mg/dL Normal 5-21 [facility] Comment on above: Performed By: #### 2 [id number] #### [facility] [address] [place] [address] Urea nitrogen/Creatinine [Mass ratio] 22 No Units High 10-20 [facility] Comment on above: Performed By: #### 2 [id number] #### [facility] [address] [place] [address] Lipid Panelon 10-24-2024 Cholesterol [Mass/Vol] 249 mg/dL High 120-200 [facility] Comment on above: Performed By: #### 2 [id number] #### [facility] [address] [place] [address] Cholesterol in HDL [Mass/Vol] 37 mg/dL Invalid Interpretation Code [facility] Comment on above: Result Comment: '>= 60 LOW RISK' '<= 40 HIGH RISK' Performed By: #### 2 [id number] #### [facility] [address] [place] [address] Cholesterol in LDL [Mass/Vol] 183 mg/dL High <=129 [facility] Comment on above: Performed By: #### 2 [id number] #### [facility] [address] [place] [address] Cholesterol in VLDL [Mass/Vol] 48 mg/dL High 7-40 [facility] Comment on above: Performed By: #### 2 [id number] #### [facility] [address] [place] [address] Triglyceride [Mass/Vol] 240 mg/dL High <=149 [facility] Comment on above: Performed By: #### 2 [id number] #### [facility] [address] [place] [address] eGFRon 10-24-2024 eGFR 76 mL/min/1.73 m2 Normal >=59 [facility] Comment on above: Performed By: #### 1 [id number] #### [facility] [address] [place] [address] Family Medicine Office/Clini c Noteon 10-23-2024 Family Medicine Office/Clinic Note Family Medicine Office/Clinic Note Chief Complaint Preventive health evaluation and immunization HPI Staff Meredith is a 54 year old female presenting for PE and labs Health Maintenance: Colonoscopy: none Dexa: 02/15/24 Mammo: 02/15/24 Pap: 2023 Last Labs: due History of Present Illness The patient is a 54-year-old female presenting with preventive health evaluation and immunization. She reports a history of gastroesophageal reflux disease, which has been well-controlled with medication, though she experiences occasional nausea. Family history is significant for colon cancer in her father, who was diagnosed at an unspecified age between his 40s and 60s. The patient has never undergone a colonoscopy and expresses a preference for this procedure over the Cologuard test despite her family history. She denies a family history of other cancers. Her past medical examinations include regular Pap tests, the last being early this year, a mammogram, and a home density test, all reported as normal. She mentions the onset of new dermatological spots with variable presentation, suspected to be age-related but associated with erythema and dryness, appearing sporadically on her body. She reports these are not painful, but she seeks a nursery nurse referral. Her blood pressure is noted to be well-controlled at this visit, an improvement attributed to her current treatment regimen. Review of Systems PHQ Score Initial Depression Screen Score: 0 SCORE Physical Exam Vitals & Measurements T: 36.7 ???C(Oral) HR: 80(Peripheral) RR: 16 BP: 130/82 SpO2: 99% HT: 63 in HT: 158.9 cm WT: 93.2 kg WT: 205.471 lb BMI: 36.91 General: alert, no acute distress ENMT: oral mucosa moist Cardiovascular: Regular rate and rhythm, normal peripheral perfusion Respiratory: Lungs clear to auscultation, respirations non labored Extremities: no deformity, no trauma Neurological: oriented x 4, level of consciousness appropriate for age, CN II-XII intact, motor strength equal & normal bilaterally, speech normal Abdomen: Soft, Non-tender, Non-distended, + Bowel sounds Assessment/Plan 1. Physical exam (Z00.00: Encounter for general adult medical examination without abnormal findings) Anticipatory guidance given. Discussed diet and exercise. Discussed immunizations. Ordered: CBC w/ Auto Diff Comprehensive Metabolic Panel [facility] External Ambulatory Referral [facility] Internal Ambulatory Referral Lipid Panel 2. Encounter for screening for malignant neoplasm of colon (Z12.11) Arrange for colonoscopy due to family history of colon cancer. Discussed preference for traditional colonoscopy over Cologuard screening to ensure comprehensive evaluation. Ordered: [facility] External Ambulatory Referral [facility] Internal Ambulatory Referral 3. Other skin changes (R23.8) Referral to dermatology for evaluation of hyperpigmented spots with central redness and dryness for definitive diagnosis and management. Ordered: [facility] External Ambulatory Referral [facility] Internal Ambulatory Referral 4. Gastro-esophageal reflux disease without esophagitis (K21.9) Continue current medication regimen, monitor symptoms, and consider EGD with the colonoscopy to evaluate for any esophageal abnormalities given the nausea reported. Ordered: [facility] External Ambulatory Referral [facility] Internal Ambulatory Referral 5. Essential (primary) hypertension (I10) Continue current medication regimen, regular monitoring indicated to maintain optimal blood pressure control. Ordered: [facility] External Ambulatory Referral [facility] Internal Ambulatory Referral Encounter for immunization (Z23: Encounter for immunization) Administer routine immunizations as per schedule. Review vaccination history for any gaps. Ordered: Admin flu virus vaccine [id number] Orders: influenza virus vaccine, inactivated, 0.5 mL, Susp-Inj, IntraMuscular, Once, Stop date 10/23/24 16:00:00 EST, Routine, Start date 10/23/24 16:00:00 EST 54-year-old female with a history of gastroesophageal reflux disease presenting with preventive health evaluation and immunization. The patient's hypertension is well-controlled. Dermatological changes noted may require further evaluation. Family history of colon cancer necessitates consideration for a colonoscopy. Follow-up No qualifying data available Problem List/Past Medical History Ongoing Biceps tendinitis Colon cancer screening GERD without esophagitis Greater trochanteric bursitis of left hip HTN (hypertension) Osteopenia Physical exam Historical No qualifying data Procedure/Surgical History Appendectomy, Tonsillectomy. Medications Caltrate 600 + D, 1 tab(s), Oral, Daily hydrochlorothiazide 25 mg Tab, See Instructions losartan 100 mg Tab, See Instructions omeprazole 40 mg Cap-DR, See Instructions Allergies No Known Allergies Social History Alcohol Never., 10/16/2024 Substance Abuse Never., 10/16/2024 Tobacco Former smoker, quit more than 30 days (more content not included)... Normal [facility] Comment on above: Result Comment: Elec tronically Signed By: Zaid SPIVEY, Glenn Jean\.br\Date and Time Signed: 10/23/24 15:48 EST Family Medicine Office/Clini c Noteon 10-16-2024 Family Medicine Office/Clinic Note Family Medicine Office/Clinic Note HPI Staff Meredith is a 53 year old female presenting for 6 month follow up htn Patient is here for follow up on hypertension. How often are you checking your blood pressure? sometimes What are your average readings? last time 133/88 Yearly BMP: ?? _ questions/concerns: none, just c/o being very tired, working 12 hour shifts 5 days a week this week 6 days, midnight shift, goes in 1am and gets off at 3pm History of Present Illness Pt here for follow up. Pt has not slept. Pt is very tired. Working 3am - 3pm. Review of Systems PHQ Score Initial Depression Screen Score: 0 SCORE Physical Exam Vitals & Measurements T: 37.1 ???C(Temporal Artery) HR: 82(Peripheral) RR: 16 BP: 150/88 SpO2: 97% HT: 63 in HT: 158.9 cm WT: 92.7 kg WT: 204.368 lb BMI: 36.71 General: alert, no acute distress ENMT: oral mucosa moist, Cardiovascular: regular rate and rhythm, normal peripheral perfusion Respiratory: Lungs CTA, respirations non labored Extremities: no deformity, no trauma Neurological: oriented x 4, LOC appropriate for age, CN II-XII intact, motor strength equal & normal bilaterally, speech normal Abdomen: Soft, Nontender, Non-distended, + BS Assessment/Plan 1. HTN (hypertension) (I10: Essential (primary) hypertension) Elevated today. Will recheck in a month when she is not tired. 2. Adult BMI 36.0-36.9 kg/sq m (Z68.36: Body mass index [BMI] 36.0-36.9, adult) BMI education added 3. Exogenous obesity (E66.09: Other obesity due to excess calories) Diet and exercise advised 4. Former smoker (Z87.891: Personal history of nicotine dependence) Please continue not to smoke. Follow-up No qualifying data available Problem List/Past Medical History Ongoing Biceps tendinitis Colon cancer screening GERD without esophagitis Greater trochanteric bursitis of left hip HTN (hypertension) Osteopenia Historical No qualifying data Procedure/Surgical History Appendectomy, Tonsillectomy. Medications Caltrate 600 + D, 1 tab(s), Oral, Daily hydrochlorothiazide 25 mg Tab, See Instructions losartan 100 mg Tab, See Instructions omeprazole 40 mg Cap-DR, See Instructions Allergies No Known Allergies Social History Alcohol Never., 10/16/2024 Substance Abuse Never., 10/16/2024 Tobacco Former smoker, quit more than 30 days ago Tobacco Use:., 10/16/2024 Family History Cancer: Father. Diabetes mellitus type 2: Father. Hypertension: Mother. Primary malignant neoplasm of colon: Father. Immunizations Vaccine Date Status SARS-CoV-2 (COVID-19) mRNA BNT-162b2 vax 04/03/2021 Recorded SARS-CoV-2 (COVID-19) mRNA BNT-162b2 vax 03/13/2021 Recorded Normal [facility] Comment on above: Result Comment: Elec tronically Signed By: Zaid SPIVEY, Glenn Ibarra.br\Date and Time Signed: 10/16/24 17:44 EST XR finger RT 3rd digiton XR finger RT 3rd digit [facility] [place] [address] XRay Report Signed Patient: Meredith Byrd MR#: [id number] : 1970 Acct:[id number] Age/Sex: 53 / F ADM Date: 04/20/24 Loc: XNJLY Room: Type: [facility] REF Attending Dr: Primitivo Hu [employer] Copies to: Primitivo Hu [employer] Ordering Provider: Primitivo Hu CNP Date of Service: 04/20/24 XR/XR finger RT 3rd digit: RIGHT MIDDLE FINGER INJURY XR finger RT 3rd digit 04/20/2024 9:24 AM SIGNS AND SYMPTOMS: Crush injury to right third digit. Pain and swelling of the proximal interphalangeal joint and middle phalanx. PROTOCOL: Frontal, lateral, and oblique radiographs of the right hand COMPARISON: None FINDINGS: There is mild narrowing of the distal interphalangeal joints. There is no evidence of fracture or dislocation. There is mild soft tissue swelling along the third digit. The bones are in anatomic alignment. XR/XR finger RT 3rd digit IMPRESSION: No acute bony injury. Mild soft tissue swelling is noted in the third digit. Mild degenerative changes are noted throughout the distal interphalangeal joints. Impression dictated by: Doug Duong M.D.04/20/2024 9:59 AM Dictation Location: [place] [address] Transcribed By: [facility] 04/20/24 0959 Dictated By: Doug Duong II, MD 04/20/24 0958 Signed By: 04/20/24 0959 Normal [facility] Family Medicine Office/Clini c Noteon 04-13-2024 Family Medicine Office/Clinic Note HPI Staff Meredith is a 53 year old female presenting for one month follow up htn OLIVERIO added hctz Patient is here for follow up on hypertension. How often are you checking your blood pressure? occasionally _ What are your average readings? _ Yearly BMP: ?? questions/concerns: took last hctz today. When she first started it BP was all over the place but after about a week it seemed to come together more. But still 130-145/70-84 Will need the hctz refilled unless you change things. BP elevated today but just came from work and was agitated History of Present Illness - Here for follow up. - Bp at home is doing well. Review of Systems PHQ Score Initial Depression Screen Score: 0 SCORE Physical Exam Vitals & Measurements T: 37.2 ?C(Temporal Artery) HR: 84(Peripheral) RR: 16 BP: 150/94 SpO2: 97% HT: 63 in HT: 158.9 cm WT: 84.3 kg WT: 185.46 lb BMI: 33.39 General: alert, no acute distress ENMT: oral mucosa moist, Cardiovascular: normal peripheral perfusion Respiratory: respirations non labored Extremities: no deformity, no trauma Neurological: oriented x 4, LOC appropriate for age, CN II-XII intact, motor strength equal & normal bilaterally, speech normal Assessment/Plan 1. HTN (hypertension) (I10: Essential (primary) hypertension) - Elevated at this time - Will recheck 2. GERD without esophagitis (K21.9: Gastro-esophageal reflux disease without esophagitis) - Controlled - No issues with meds 3. BMI 33.0-33.9,adult (Z68.33: Body mass index [BMI] 33.0-33.9, adult) - BMI education given - Diet and exercise advised 4. Over weight (E66.3: Overweight) - As above 5. Former smoker (Z87.891: Personal history of nicotine dependence) - Please continue not to smoke 6. Greater trochanteric bursitis of left hip (M70.62: Trochanteric bursitis, left hip) - Intermittent - Controlled with RICE and NSAIDs. Orders: hydrochlorothiazide, 25 mg = 1 tab(s), Oral, Daily, # 90 tab(s), Refills(s) 1, Pharmacy: [facility]/pharmacy #[id number], 158.9, cm, 04/13/24 15:23:00 EDT, Height/Length Dosing, 84.3, kg, 04/13/24 15:23:00 EDT, Weight Dosing naproxen, See Instructions, TAKE 1 TABLET BY MOUTH TWICE A DAY, # 60 tab(s), Refills(s) 0, Pharmacy: [facility] STORE [id number], 159, cm, 01/31/24 15:55:00 EST, Height/Length Dosing, 84.3, kg, 01/31/24 15:55:00 EST, Weight Dosing Follow-up No qualifying data available Patient Education BMI for Adults Problem List/Past Medical History Ongoing Biceps tendinitis Colon cancer screening GERD without esophagitis Greater trochanteric bursitis of left hip HTN (hypertension) Osteopenia Historical No qualifying data Procedure/Surgical History Appendectomy, Tonsillectomy. Medications Caltrate 600 + D, 1 tab(s), Oral, Daily hydrochlorothiazide 25 mg Tab, 25 mg= 1 tab(s), Oral, Daily, 1 refills losartan 100 mg Tab, See Instructions omeprazole 40 mg Cap-DR, See Instructions Allergies No Known Allergies Social History Tobacco Former smoker, quit more than 30 days ago Tobacco Use:. Cigarettes, Household tobacco concerns: No., 04/13/2024 Family History Cancer: Father. Diabetes mellitus type 2: Father. Hypertension: Mother. Primary malignant neoplasm of colon: Father. Immunizations Vaccine Date Status SARS-CoV-2 (COVID-19) mRNA BNT-162b2 vax 04/03/2021 Recorded SARS-CoV-2 (COVID-19) mRNA BNT-162b2 vax 03/13/2021 Recorded Normal [facility] Comment on above: Result Comment: Elec tronically Signed By: Zaid SPIVEY, Glenn Jean\.br\Date and Time Signed: 04/13/24 15:45 EDT Patient Educationon 04-13-20 Patient Education Nutrition BMI for Adults What [...] numbers. This can be done either in [place] ([place] or metric measurements. Note that charts and online BMI calculators are available to help you find your BMI quickly and easily without having to do these calculations yourself. To calculate your BMI in [place] ([place] measurements: 1. Measure your weight in [...] for Disease Control and Prevention: www.cdc.gov ? [place] Heart Association: www.heart.org ? National Heart, Lung, and Blood [place]: www.nhlbi.nih.gov Summary ? Body mass index (BMI) is a number that is calculated from a person's weight and height. ? BMI may help estimate how much of a person's weight is composed of fat. BMI can help identify those who may be at higher risk for certain medical problems. ? BMI can be measured using [place]o measurements or metric measurements. ? BMI charts are used to identify whether you are underweight, normal weight, overweight, or obese. This information is not intended to replace advice given to you by your health care provider. Make sure you discuss any questions you have with your health care provider. Document Revised: 08/07/2020 Document Reviewed: 06/14/2020 [employer] Patient Education ? 2022 [employer] Normal [facility] Discharge Note - PTon 2023 Discharge Note - PT [id number] #1.00TIFF Normal [facility] Family Medicine Office/Clini c Noteon 03-15-2024 Family Medicine Office/Clinic Note HPI Staff Meredith is a 53 year old female presenting for full PE and f/u BP Added losartan 100mg last visit, patients states it's all over the place at home and only time it's normal is if she rests/sleeps for 12 hours Health Maintenance: Colonoscopy: none Mammo: over 10 years, normal Pap: 01/02/24 Last Labs: History of Present Illness - Here for CPE. - NO issues at this time. - HTN is elevated at this time. Took her meds this morning,. Review of Systems PHQ Score Initial Depression Screen Score: 0 SCORE Physical Exam Vitals & Measurements T: 36.6 ?C(Oral) HR: 70(Peripheral) RR: 16 BP: 160/104 SpO2: 98% HT: 63 in HT: 158.9 cm WT: 86.7 kg WT: 190.74 lb BMI: 34.34 General: alert, no acute distress ENMT: oral mucosa moist, Cardiovascular: regular rate and rhythm, normal peripheral perfusion Respiratory: Lungs CTA, respirations non labored Extremities: no deformity, no trauma Neurological: oriented x 4, LOC appropriate for age, CN II-XII intact, motor strength equal & normal bilaterally, speech normal Abdomen: Soft, Nontender, Non-distended, + BS Assessment/Plan 1. Physical exam (Z00.00: Encounter for general adult medical examination without abnormal findings) Anticipatory guidance given. Discussed diet and exercise. Discussed immunizations. Ordered: CBC w/ Auto Diff Cologuard Screening Test Comprehensive Metabolic Panel Lipid Panel 2. HTN (hypertension) (I10: Essential (primary) hypertension) - Not at goal. - Adding HCTZ - Recheck in 1 month Ordered: CBC w/ Auto Diff Cologuard Screening Test Comprehensive Metabolic Panel Lipid Panel 3. BMI 34.0-34.9,adult (Z68.34: Body mass index [BMI] 34.0-34.9, adult) - BMI education given Ordered: CBC w/ Auto Diff Cologuard Screening Test Comprehensive Metabolic Panel Lipid Panel 4. Class 1 obesity due to excess calories in adult (E66.09: Other obesity due to excess calories) - Diet and exercise advised Ordered: CBC w/ Auto Diff Cologuard Screening Test Comprehensive Metabolic Panel Lipid Panel 5. Former smoker (Z87.891: Personal history of nicotine dependence) - Please continue to not smoke Ordered: CBC w/ Auto Diff Cologuard Screening Test Comprehensive Metabolic Panel Lipid Panel 6. Colon cancer screening (Z12.11: Encounter for screening for malignant neoplasm of colon) - Cologuard ordered Ordered: CBC w/ Auto Diff Comprehensive Metabolic Panel Lipid Panel Orders: hydrochlorothiazide, 25 mg = 1 tab(s), Oral, Daily, # 90 tab(s), Refills(s) 0, Pharmacy: [facility]/pharmacy #[id number], 158.9, cm, 03/15/24 7:44:00 EDT, Height/Length Dosing, 86.7, kg, 03/15/24 7:44:00 EDT, Weight Dosing Follow-up No qualifying data available Problem List/Past Medical History Ongoing Biceps tendinitis Colon cancer screening GERD without esophagitis Greater trochanteric bursitis of left hip HTN (hypertension) Osteopenia Physical exam Shoulder pain, left Historical No qualifying data Procedure/Surgical History Appendectomy, Tonsillectomy. Medications Caltrate 600 + D, 1 tab(s), Oral, Daily hydrochlorothiazide 25 mg Tab, 25 mg= 1 tab(s), Oral, Daily losartan 100 mg Tab, 100 mg= 1 tab(s), Oral, Daily naproxen 500 mg Tab, See Instructions omeprazole 40 mg Cap-DR, See Instructions Allergies No Known Allergies Social History Tobacco Former smoker, quit more than 30 days ago Tobacco Use:. Cigarettes, Household tobacco concerns: No., 03/15/2024 Family History Cancer: Father. Diabetes mellitus type 2: Father. Hypertension: Mother. Primary malignant neoplasm of colon: Father. Immunizations Vaccine Date Status SARS-CoV-2 (COVID-19) mRNA BNT-162b2 vax 04/03/2021 Recorded SARS-CoV-2 (COVID-19) mRNA BNT-162b2 vax 03/13/2021 Recorded Normal [facility] Comment on above: Result Comment: Elec tronically Signed By: Glenn Mra MD\.br\Date and Time Signed: 03/15/24 15:45 EDT Dexa Scanson 02-22-2024 Dexa Scans [id number] #1.00TIFF Normal [facility] Outside Mammographyon 2023 Outside Mammography [id number] #1.00TIFF Normal [facility] Ambulatory Visit Summaryon 0 01-31-2024 Ambulatory Visit Summary MEREDITH BYRD :1970 Visit Date:01/31/2024 Ambulatory Visit Instructions Your [...] Follow-Up Appointments Wednesday 3:45 PM EDT With: Zaid SPIVEY, Glenn Jean Where: [facility] [place] Normal [facility] Family Medicine Office/Clini c Noteon 01-31-2024 [...] Daily, # 90 tab(s), Refills(s) 0, Pharmacy: [facility]/pharmacy #[id number], 159, cm, 01/31/24 15:55:00 EST, Height/Length Dosing, [...] (COVID-19) mRNA BNT-162b2 vax 03/13/2021 Recorded Normal [facility] Comment on above: Result Comment: Elec tronically Signed By: Zaid SPIVEY, Glenn Ibarra.br\Date and Time Signed: 01/31/24 16:22 EST PT - Progress Noteson 2023 PT - Progress Notes [id number] #1.00TIFF Normal [facility] Patient Educationon 01-31-20 Patient Education Nutrition BMI for Adults What [...] numbers. This can be done either in [place] ([place] or metric measurements. Note that charts and online BMI calculators are available to help you find your BMI quickly and easily without having to do these calculations yourself. To calculate your BMI in [place] ([place] measurements: 1. Measure your weight in [...] for Disease Control and Prevention: www.cdc.gov ? [place] Heart Association: www.heart.org ? National Heart, Lung, and Blood [place]: www.nhlbi.nih.gov Summary ? Body mass index (BMI) is a number that is calculated from a person's weight and height. ? BMI may help estimate how much of a person's weight is composed of fat. BMI can help identify those who may be at higher risk for certain medical problems. ? BMI can be measured using Lao measurements or metric measurements. ? BMI charts are used to identify whether you are underweight, normal weight, overweight, or obese. This information is not intended to replace advice given to you by your health care provider. Make sure you discuss any questions you have with your health care provider. Document Revised: 08/07/2020 Document Reviewed: 06/14/2020 [employer] Patient Education ? 2022 [employer] Normal [facility] CT Chest, Low Dose Screening on [...] Oliver MD Transcribed by: ELIEZER Technologist: GENEVIEVE [facility] Consent for Treatmenton Consent for Treatment [id number] #1.00TIFF [facility] Plan of Care - PT/OT/Speecho n 12-30-2023 Plan of Care - PT/OT/Speech [id number] #1.00TIFF [facility] Medicine Office/Clini c Noteon 12-23-2023 Family Medicine Office/Clinic Note HPI Staff Meredith is a 53 year old female presenting to establish care Establish Care: History: Any previous diagnosis: [...] shoulder pain History of Present Illness Meredith Byrd is a 53-year-old female who presents today [...] her parents' concrete steps back in the 90s. She landed on her left elbow and has had trouble with it ever since. She is feeling pain in her clavicle, and it occasionally aches at night. She reports never going to the doctor then. 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 Her movements at work are different depending [...] Bicipital tendinitis, uns (more content not included)... [facility] Comment on above: Result Comment: Elec tronically Signed By: Glenn Mar MD\.br\Date and Time Signed: 12/23/23 11:45 EST\.br\Electronically Co-Signed By: Angie Chand\.br\Date and Time Co-Signed: 12/21/23 14:00 EST\.br\Electronically Co-Signed By: Harmony Smith\.br\Date and Time Co-Signed: 12/22/23 10:45 EST Insurance Correspondenceon 0 12-23-2023 Insurance Correspondence [id number] 6#1.00TIFF [facility] Physician Orderon 12-23-2023 Physician Order [id number] #1.00TIFF [facility] Ambulatory Visit Summaryon 0 12-21-2023 Ambulatory Visit Summary MEREDITH BYRD :1970 Visit Date:12/21/2023 Ambulatory Visit Instructions Your Diagnosis [...] Follow-Up Appointments Wednesday 4:00 PM EST With: Zaid SPIVEY, Glenn Jean Where: [facility] [place] Normal [facility] Patient Educationon 12-21-19 Patient Education Nutrition [...] numbers. This can be done either in [place] ([place] or metric measurements. Note that charts and online BMI calculators are available to help you find your BMI quickly and easily without having to do these calculations yourself. To calculate your BMI in [place] ([place] measurements: 1. Measure your weight in [...] for Disease Control and Prevention: www.cdc.gov ? [place] Heart Association: www.heart.org ? National Heart, Lung, and Blood [place]: www.nhlbi.nih.gov Summary ? Body mass index (BMI) is a number that is calculated from a person's weight and height. ? BMI may help estimate how much of a person's weight is composed of fat. BMI can help identify those who may be at higher risk for certain medical problems. ? BMI can be measured using Lao measurements or metric measurements. ? BMI charts are used to identify whether you are underweight, normal weight, overweight, or obese. This information is not intended to replace advice given to you by your health care provider. Make sure you discuss any questions you have with your health care provider. Document Revised: 08/07/2020 Document Reviewed: 06/14/2020 [employer] Patient Education ? 2022 [employer] Normal [facility] Vital Signs Date Time Vital Sign Value Performing Clinician Aida rangel 12-14-2024 14:19-0500 Blood Pressure Location Nair Sarmini [facility] 12-14-2024 14:19-0500 Diastolic blood pressure 90 mm[Hg] Nair Sarmini [facility] 12-14-2024 14:19-0500 Heart rate 94 /min Nair Sarmini [facility] 12-14-2024 14:19-0500 Respiratory rate 14 /min Nair Sarmini [facility] 12-14-2024 14:19-0500 Systolic blood pressure 126 mm[Hg] Nair Sarmini [facility] Encounters Encounter Date Encounter Type Care Provider Facility Start: 12-27-2024 End: 12-27-2024 ambulatory Nair Talal Sarmini Facility:[facility] Start: 12-27-2024 End: 12-27-2024 Patient encounter procedure Nair Talal Sarmini [facility] Start: 12-26-2024 End: 12-26-2024 ambulatory Nair Talal Sarmini Facility:[facility] Start: 12-26-2024 End: 12-26-2024 Lab Drop off Nair Talal Sarmini [facility] Start: 12-26-2024 End: 12-26-2024 ambulatory Nair Talal Sarmini Facility:[id number] Start: 12-15-2024 ambulatory Korey Mcguire Facili ty:[facility] Start: 12-14-2024 End: 12-14-2024 ambulatory Korey Mcguire Facility:[facility] Start: 12-14-2024 End: 12-14-2024 Patient encounter procedure Korey Mcguire [facility] Start: 10-23-2024 End: 10-23-2024 Lab Drop off Glenn Mar [facility] Start: 10-23-2024 End: 10-23-2024 ambulatory Glenn Mar Facility:[facility] Start: 10-16-2024 End: 10-16-2024 ambulatory Glenn Mar Facility:[facility] Start: 04-20-2024 End: 04-20-2024 Departed Referred [employer] Primitivo Hu Work Phone: [facility] Meño Work Phone: Start: 04-20-2024 End: 04-20-2024 ambulatory PHYSICIAN SHAUN BRANDT [facility] Work Phone: Start: 04-13-2024 End: 04-13-2024 ambulatory Glenn Mar Facility:[facility] Start: 03-14-2024 End: 03-14-2024 ambulatory Glenn Mar Facility: [facility] [place] Start: 01-31-2024 End: 01-31-2024 ambulatory Glenn Mar Facility: [facility] Start: 01-20-2024 End: 01-20-2024 ambulatory DARINEL CASTILLO Not Available Start: 12-31-2023 End: 12-31-2023 ambulatory Glenn Mar Facility:[facility] Start: 12-31-2023 End: 12-31-2023 Patient encounter procedure Glenn Mar [facility] Start: 12-21-2023 End: 12-21-2023 ambulatory Glenn Mar Facility:[facility] [place] Start: 12-15-2023 ambulatory Glenn Mar Facility:[facility] Procedures Date Procedure Procedure Detail Performing Clinician Start: 04-20-2024 X-ray of middle finger [employer] Primitivo Hu Work Phone: Appendectomy Glenn Mar Tonsillectomy Glenn Mar Plan of Treatment Date Care Activity Detail Author Start: 04-16-2025 ambulatory Ambulatory Facility:[facility] Immunizations Immunization Date Immunization Notes Care Provider Fa lana 10-23-2024 influenza, seasonal, injectable, preservative free; Translations: [Fluzone TIV PF ] Glenn Mar [facility] 04-03-2021 SARS-CoV-2 (COVID-19 ) mRNA BNT-162b2 [facility] Glenn Mar [facility] 03-13-2021 SARS-CoV-2 (COVID-19 ) mRNA BNT-162b2 [facility] Glenn Mar [facility] Payers Date Payer Category Payer Self-pay 2024 Unknown [id number] 2023 Unknown [id number] 1970 Unknown [id number] 2.16.84 [id number] 1970 Unknown [id number] 2.16.8 40.1.860145.3.579.2.727 1970 Unknown [id number] 2.16.8 40.1.101165.3.579.2.727 1970 Unknown [id number] 2.16.8 40.1.688760.3.579.2.727 1970 Unknown [id number] 2.16.8 40.1.096462.3.579.2.727 1970 Unknown [id number] 2.16.8 40.1.187703.3.579.2.727 1970 Unknown [id number] 2.16.8 40.1.063982.3.579.2.727 1970 Unknown [id number] 2.16.8 40.1.597834.3.579.2.727 1970 Unknown [id number] 2.16.8 40.1.888840.3.579.2.727 1970 Unknown [id number] 2.16.8 40.1.827628.3.579.2.727 1970 Unknown [id number] 2.16.8 40.1.337172.3.579.2.727 1970 Unknown [id number] 2.16.8 40.1.112781.3.579.2.727 1970 Unknown [id number] 2.16.8 40.1.677523.3.579.2.727 1970 Unknown [id number] 2.16.8 40.1.255610.3.579.2.727 1970 Unknown [id number] 2.16.8 40.1.824084.3.579.2.727 Unknown [place] [employer] [id number] Unknown [id number] 2.16.8 [id number] Social History Date Type Detail Facility Start: 12-21-2023 End: 12-14-2024 Tobacco smoking status Ex-smoker (finding) [facility] [place] Sex Assigned At Female [facility] Start: 1970 Sex Assigned At Female [facility] Functional Status Date Assessment Result Facility 12-14-2024 Functional Status N/A [facility] Evaluation + Plan note Note Date & Type Note Facility Evaluation + Plan note Future Appointments Appointment Date:01/31/2024 04:00:00 PM Scheduled Provider:Glenn Mar MD Location:[facility] Appointment Type: Open [facility] Evaluation + Plan note Laboratory Note Date & Type Note Facility Evaluation + Plan note Future Appointments Appointment Date:04/16/2025 03:30:00 PM Scheduled Provider:Glenn Mar MD Location:[facility] Appointment Type: Open Diagnostic Tests PendingCBC w/ Auto Diff 10/23/24Comprehensive Metabolic Panel 10/23/24Lipid Panel 10/23/24 Future Scheduled TestsCBC w/ Auto Diff 03/15/24Comprehensive Metabolic Panel 03/15/24Lipid Panel 03/15/24 [facility] Evaluation + Plan note LaboratoryRadiology Note Date & Type Note Facility Evaluation + Plan note Future Appointments Appointment Date:04/16/2025 03:30:00 PM Scheduled Provider:Glenn Mar MD Location:[facility] Appointment Type: Open Future Scheduled TestsCBC w/ Auto Diff 03/15/24Comprehensive Metabolic Panel 03/15/24Lipid Panel 03/15/24NM Gastric Emptying Study 12/14/24 [facility] Evaluation + Plan note LaboratoryRadiology Note Date & Type Note Facility Evaluation + Plan note Future Appointments Appointment Date:12/27/2024 11:00:00 AM Scheduled Provider: [facility] Appoint[facility] Type:NM Gastric Emptying Study (FT) Appointment Date:04/16/2025 03:30:00 PM Scheduled Provider:Glenn Mar MD Location:[facility] Appointment Type: Open Future Scheduled TestsCBC w/ Auto Diff 03/15/24Comprehensive Metabolic Panel 03/15/24Lipid Panel 03/15/24NM Gastric Emptying Study 12/27/24 [facility] Evaluation + Plan note Laboratory Note Date & Type Note Facility Evaluation + Plan note Future Appointments Appointment Date:04/16/2025 03:30:00 PM Scheduled Provider:Glenn Mar MD Location:[facility] Appointment Type: Open Future Scheduled TestsCBC w/ Auto Diff 03/15/24Comprehensive Metabolic Panel 03/15/24Lipid Panel 03/15/24 [facility] Evaluation note Note Date & Type Note Facility Evaluation note No assessment information availa [facility] Work Phone: Hospital course Narrative Note Date & Type Note Facility Hospital course Narrative No data available for this section [facility] Hospital Discharge instructions Note Date & Type Note Facility Hospital Discharge instructions No data available for this section [facility] Progress note Note Date & Type Note Facility Progress note No data available for this section [facility] Summary Purpose Family History No Family History Records Found Advance Directives No Advanced Directives Records FoundNo Advanced Directives Records FoundNo Advanced Directives Records FoundNo Advanced Directives Records FoundNo Advanced Directives Records FoundNo Advanced Directives Records FoundNo Advanced Directives Records FoundNo Advanced Directives Records FoundNo Advanced Directives Records Found Additional Source Comments Patient Care team informatio n (unrecognized section and content) Team Status: Inactive Member Role Status Dates IGOR Rodriguez Attending Provider Active Start: April 20, 2024 End: April 20, 2024 INFORMATION SOURCE (unrecogn ized section and content) DATE CREATED AUTHOR 01/28/2024 [facility] DATE CREATED AUTHOR AUTHOR'S ORGANIZ ATION 05/09/2024 [facility] DATE CREATED AUTHOR AUTHOR'S ORGANIZ ATION 10/25/2024 [facility] DATE CREATED AUTHOR AUTHOR'S ORGANIZ ATION 10/27/2024 [facility] DATE CREATED AUTHOR AUTHOR'S ORGANIZ ATION 12/31/2024 [facility] DATE CREATED AUTHOR AUTHOR'S ORGANIZ ATION 01/05/2025 [facility] DATE CREATED AUTHOR AUTHOR'S ORGANIZ ATION 01/06/2025 [facility] Goals (unrecognized section and content) Goals may be documented in a n alternate section FOR RECORDS PERTAINING TO PATIENTS WHO ARE [...] BE BASED ON THE PRIMARY CLINICAL RECORDS. [facility] [employer] [facility]. provides no warranty or guarantee of the accuracy or completeness of information in this document.
[2025-01-29 19:07] LABS: Age Gdln ACOG Testing Note (.); HPV Aptima Negative (Negative); IGP, Aptima HPV, rfx 16/18,45 Note (.)
== END 2025-01-24 20:51 | disposition home or self-care (01) ==
LOC: LAB 20:50
PROVIDERS: PCP Family Medicine; Visit Provider Physician Assistant
DX: Z01.419 Encounter for gynecological examination (general) (routine) without abnormal findings (principal)
CPT/HCPCS: 87624; 88175

== ENCOUNTER 2025-02-16 07:16 | Outpatient (OUT) | payer OTHER, SELFPAY ==
--- OUTSIDE RECORDS SUMMARY | 2025-02-16 07:19 | XMS_ITS | CCD ---
Author Organization [facility] Care Team Providers Care Flute Polisher Name Role Phone Glenn Mar Primary Care Physician IGOR Hu Attending Provider NO FAMILY, PHYSICIAN Primary Care Unavailable Primitivo Hu Admitting Unavailab Primitivo Chavez Attending Unavailab le Korey Mcguire Referring Unavaila Korey Feliciano Attending Glenn Pérez MD Primary Care Provider YENNY CASTILLO Attending Unavailable SarminiKorey Talal Admitting Unavaila ble Sarmini, Korey Talal Attending Unavaila ble SarminiKoreyal Attending Unavaila ble Sarmini, Korey Talal Admitting Unavaila ble Sarmini, Korey Talal Attending Unavaila ble SarminKorey grecoal Referring Unavaila ble Glenn Mar Attending Unavailable Glenn Mar Attending Unavailable Glenn Mar Attending Unavailable Glenn Mar Admitting Unavailable Glenn Mar Attending Unavailable Glenn Mar Attending Unavailable Glenn Mar Attending Unavailable Medications Current Medications Medication Drug Class(es) Dates Sig (Normalized) Sig (Original) {1 (Ascorbic Acid 7540 MG / POLYETHYLENE GLYCOL 3350 62347 MG / Potassium Chloride 1200 MG / Sodium Ascorbate 17007 MG / Sodium Chloride 3200 MG Powder for Oral Solution) / 1 (POLYETHYLENE GLYCOL 3350 862179 MG / Potassium Chloride 1000 MG / Sodium Chlori (2 sources) Osmotic Laxative, Vitamin C Start: 5 Plenvu oral powder for reconstitution See Instructions, 1 EA, Refill(s) 0, See physicians instructions prior to procedure., [facility]/pharmacy #[id number], 158, cm, 12/14/24 14:23:00 EST, Height/Length Dosing, 92.7, kg, 12/14/24 14:23:00 EST, Weight Dosing Start Date: 12/15/24 Status: Ordered atorvastatin 40 mg oral tablet (6 sources) HMG-CoA Reductase Inhibitor Start: 4 take 1 tablet by mouth once daily Lipitor 40 mg Tab 40 mg = 1 tab(s), Oral, Daily, Please take at night, # 90 tab(s), Refills(s) 0, Pharmacy: [facility]/pharmacy #[id number], 158.9, cm, 10/23/24 15:29:00 EST, Height/Length Dosing, 93.2, kg, 10/23/24 15:29:00 EST, Weight Dosing Start Date: 10/30/24 Status: Ordered Calcium Carb-Cholecalciferol (CALTRATE 600+D3 PO) (3 sources) Start: 4 take 1 dose by mouth once daily Calcium Carb-Cholecalciferol (CALTRATE 600+D3 PO) Take 1 each by mouth Daily 03/15/2024 Active Calcium Carbonate (4 sources) Start: 4 take 1 tablet by mouth once daily Caltrate 600 + D 1 tab(s), Oral, Daily, Refill(s) 0 Start Date: 03/15/24 Status: Ordered hydroCHLOROthiazide 25 mg oral tablet (7 sources) Thiazide Diuretic Start: 4 take 1 tablet by mouth once daily hydrochlorothiazide 25 mg Tab See Instructions, TAKE 1 TABLET BY MOUTH EVERY DAY, # 90 tab(s), Refills(s) 1, Pharmacy: [facility] STORE [id number], 158.9, cm, 04/13/24 15:23:00 EDT, Height/Length Dosing, 84.3, kg, 04/13/24 15:23:00 EDT, Weight Dosing Start Date: 10/05/24 Status: Ordered losartan potassium 100 mg oral tablet (7 sources) Angiotensin 2 Receptor Tom Start: 4 take 1 tablet by mouth once daily losartan 100 mg Tab See Instructions, TAKE 1 TABLET BY MOUTH EVERY DAY, # 30 tab(s), Refills(s) 5, Pharmacy: [facility] STORE [id number], 158.9, cm, 04/13/24 15:23:00 EDT, Height/Length Dosing, 84.3, kg, 04/13/24 15:23:00 EDT, Weight Dosing Start Date: 09/04/24 Status: Ordered omeprazole 40 mg delayed release oral capsule (9 sources) Proton Pump Inhibitor Start: omeprazole (PriLOSEC) [address] capsule Take 40 mg by mouth 12/21/2023 Active Completed/Discontinued Medications Medication Drug Class(es) Dates Sig (Normalized) Sig (Original) naproxen 500 mg oral tablet (4 sources) Nonsteroidal Anti-inflammatory Drug Start: 12-21-2023 End: 01-24-2025 naproxen (Naprosyn) 500 MG tablet Take 500 mg by mouth 12/21/2023 01/24/2025 Discontinued Problems Problem Classification Problem Date Documented Date [...] conditions (not mental disorders or infectious disease) (3 sources) Screening for malignant neoplasm of colon done; [...] Test Name Value Interpretation Reference Range Facility Reminderson 02-01-2025 Reminders Reminders - From: Bhavani Samuels MA To: [facility] [place] - Reminders/Recalls; Sent: 02/01/2025 16:51:38 EST Show up: 11/29/2027 16:51:00 EST Subject: Ambulatory Reminder Due Date/Time: 12/26/2027 16:51:00 EST Reminder/Recall Dr Mcguire colon recall 3 years 12/26/24 Normal [facility] IGP,APTIMA HPV,AGE GDLNon AGE GDLN ACOG TESTING Note . [facility] Comment on above: TESTS RESULT FLAG UN ITS REF RANGE LAB Clinician Provided Cytology Information Source.............Cervix;Endocervix No. of containers..01 ThinPrep Vial Age Algo ACOG Marilee... 30-65 01 FLAG LEGEND: L-Low Normal,H-High Normal,LL-Alert Low,HH-Alert High <-Panic Low,>-Panic High,A-Abnormal,AA-Critical Abnormal Performed at: 01 =G [address] [place] [address] Catalina Vera MD, HPV APTIMA Negative Negative [facility] Comment on above: This nucleic acid am plification test detects fourteen high- risk HPV types (16,18,31,33,35,39,45,51,52,56,58,59,66,68) without differentiation. Performed at: =G - [address] [id number] Public Address Systems Mechanic: Catalina Vera MD, Phone: [phone] Performed at: [address], [place] [id number] Public Address Systems Mechanic: Catalina Vera MD, Phone: [phone] IGP, APTIMA HPV, RFX 16/18,45 Note . [facility] Comment on above: TESTS RESULT FLAG UN ITS REF RANGE LAB DIAGNOSIS: 02 NEGATIVE FOR INTRAEPITHELIAL LESION OR MALIGNANCY. Specimen adequacy: 02 Satisfactory for evaluation. No endocervical component is identified. Performed by: Lorraine Zimmer, Curator Of Manuscripts (ASCP) . 02 Note: Note 02 The Pap smear is a screening test designed to aid in the detection of premalignant and malignant conditions of the uterine cervix. It is not a diagnostic procedure and should not be used as the sole means of detecting cervical cancer. Both false-positive and false-negative reports do occur. Test Methodology: Note 02 This liquid based ThinPrep(R) pap test was screened with the use of an image guided system. HPV Genotype Reflex Note 02 Criteria not met, HPV Genotype not performed. FLAG LEGEND: L-Low Normal,H-High Normal,LL-Alert Low,HH-Alert High <-Panic Low,>-Panic High,A-Abnormal,AA-Critical Abnormal Performed at: [address] [address] Catalina Vera MD, BRUSH-SPATULA CERVIX ENDOCERVIX [facility] Gastric Emptying Studyon 12-29-2024 NM Gastric Emptying Study Exam Date/Time: 12/27/2024 15:56 EST Reason for Exam: Vomiting Report IMPRESSION: NORMAL RATE OF GASTRIC EMPTYING OF A SOLID MEAL. EXAMINATION: NM Gastric Emptying Study HISTORY: Vomiting. TECHNIQUE: 0.9 [...] Mcguire FINAL REPORT Dictated: 12/29/2024 5:05 pm Amadeo Evangelista MD. Signed (Electronic Signature): 12/29/2024 5:05 pm Signed by: Amadeo Evangelista MD Transcribed by: ELIEZER Technologist: VINAY Normal [facility] Surgical Pathology Reporton 12-29-2024 Surgical Pathology Report [facility] [address] [place] [address]- Surgical Pathology Report Collected Date/Time: 12/26/2024 09:52 [...] is entirely submitted in one cassette. (DC) DC:[facility] Microscopic Description Microscopic examination performed unless gross only specified. This report was transcribed using voice recognition technology and might contain unintended computerized general expeditor errors. Normal [facility] Comment on above: Performed By: #### 4 [id number] #### [facility] [address] [place] [address] Gastroenterology Office/Clin ic Noteon 12-14-2024 Gastroenterology Office/Clinic [...] fL (10/23/24) Chloride: 98 mmol/L Low (10/23/24) [place] Absolute: 0.5 E9/L (10/23/24) CO2: 30 mmol/L (10/23/24) [place] Auto: 6 % (10/23/24) Creatinine: 0.9 mg/dL [...] I, Bhavani Samuels, personally scribed for Korey Mcgurie on 12/14/2024 15:00:57. . Documentation recorded by [...] (COVID-19) mRNA BNT-162b2 vax 03/13/2021 Recorded Normal [facility] Comment on above: Result Comment: Elec tronically Signed By: Korey Mcguire MD\.br\Date and Time Signed: 12/14/24 15:19 EST\.br\Electronically Co-Signed By: Bhavani Samuels MA\.br\Date and Time Co-Signed: 12/14/24 15:07 EST CBC w/ Auto Diffon 4 Basophils/100 WBC (Bld) 0.6 % Normal 0.0-2.0 [facility] Comment on above: Performed By: #### 2 [id number] #### [facility] [address] [place] [address] Basophils/Leukocytes Auto (Bld) [Pure # fraction] 0.0 E9/L Normal 0.0-0.2 [facility] Comment on above: Performed By: #### 2 [id number] #### [facility] [address] [place] [address] Eosinophils (Bld) [#/Vol] 0.2 E9/L Normal 0.0-0.5 [facility] Comment on above: Performed By: #### 2 [id number] #### [facility] [address] [place] [address] Eosinophils/100 WBC (Bld) 3.1 % Normal 0.0-8.0 [facility] Comment on above: Performed By: #### 2 [id number] #### [facility] [address] [place] [address] Erythrocyte distribution width (RBC) [Ratio] 14.8 % High 10.9-14.2 [facility] Comment on above: Performed By: #### 2 [id number] #### [facility] [address] [place] [address] Hematocrit (Bld) [Volume fraction] 36.0 % Normal 34.0-46.0 [facility] Comment on above: Performed By: #### 2 [id number] #### [facility] [address] [place] [address] Hemoglobin (Bld) [Mass/Vol] 11.8 g/dL Low 12.0-16.0 [facility] Comment on above: Performed By: #### 2 [id number] #### [facility] [address] [place] [address] Lymphocytes (Bld) [#/Vol] 2.0 E9/L Normal 1.0-4.0 [facility] Comment on above: Performed By: #### 2 658124 #### [facility] [address] [place] [address] Lymphocytes/100 WBC (Bld) 25.1 % Normal 14.0-50.0 [facility] Comment on above: Performed By: #### 2 958727 #### [facility] [address] [place] [address] MCH (RBC) [Entitic mass] 28.6 pg Normal 27.0-34.0 [facility] Comment on above: Performed By: #### 2 [id number] #### [facility] [address] [place] [address] MCHC (RBC) [Mass/Vol] 32.7 g/dL Normal 31.4-36.0 [facility] Comment on above: Performed By: #### 2 234854 #### [facility] [address] [place] [address] MCV (RBC) [Entitic vol] 87.5 fL Normal 80.0-100.0 [facility] Comment on above: Performed By: #### 2 920057 #### [facility] [address] [place] [address] Monocytes (Bld) [#/Vol] 0.5 E9/L Normal 0.2-1.0 [facility] Comment on above: Performed By: #### 2 398078 #### [facility] [address] [place] [address] Neutrophils (Bld) [#/Vol] 5.1 E9/L Normal 2.0-7.5 [facility] Comment on above: Performed By: #### 2 530236 #### [facility] [address] [place] [address] Neutrophils/100 WBC (Bld) 65.2 % Normal 36.0-75.0 [facility] Comment on above: Performed By: #### 2 062354 #### [facility] [address] [place] [address] Platelet mean volume (Bld) [Entitic vol] 8.8 fL Normal 6.4-10.8 [facility] Comment on above: Performed By: #### 2 745350 #### [facility] [address] [place] [address] Platelets (Bld) [#/Vol] 368.0 E9/L Normal 150.0-500.0 [facility] Comment on above: Performed By: #### 2 [id number] #### [facility] [address] [place] [address] RBC (Bld) [#/Vol] 4.1 E12/L Low 4.3-5.9 [facility] Comment on above: Performed By: #### 2 098800 #### [facility] [address] [place] [address] WBC corrected for nucl RBC Auto (Bld) [#/Vol] 7.8 E9/L Normal 4.0-11.0 [facility] Comment on above: Performed By: #### 2 321693 #### [facility] [address] [place] [address] CMPon 10-24-2024 Albumin [Mass/Vol] 4.2 g/dL Normal 3.3-5.0 [facility] Comment on above: Performed By: #### 2 703864 #### [facility] [address] [place] [address] Albumin/Globulin (S) [Mass conc ratio] 1.5 Normal 1.1-2.2 [facility] Comment on above: Performed By: #### 2 748502 #### [facility] [address] [place] [address] ALP [Catalytic activity/Vol] 97 Int._Unit/L Normal 21-98 [facility] Comment on above: Performed By: #### 2 767584 #### [facility] [address] [place] [address] ALT No additional P-5'-P [Catalytic activity/Vol] 16 Int._Unit/L Normal 6-46 [facility] Comment on above: Performed By: #### 2 271205 #### [facility] [address] [place] [address] Anion gap [Moles/Vol] 12 mmol/L Normal 6-16 [facility] Comment on above: Performed By: #### 2 664528 #### [facility] [address] [place] [address] AST [Catalytic activity/Vol] 23 Int._Unit/L Normal 5-43 [facility] Comment on above: Performed By: #### 2 743505 #### [facility] [address] [place] [address] Bilirubin [Mass/Vol] 0.3 mg/dL Normal 0.0-1.1 [facility] Comment on above: Performed By: #### 2 273242 #### [facility] [address] [place] [address] Calcium [Mass/Vol] 9.0 mg/dL Normal 8.9-11.1 [facility] Comment on above: Performed By: #### 2 156191 #### [facility] [address] [place] [address] Chloride [Moles/Vol] 98 mmol/L Low 101-111 [facility] Comment on above: Performed By: #### 2 983307 #### [facility] [address] [place] [address] CO2 [Moles/Vol] 30 mmol/L Normal 21-31 [facility] Comment on above: Performed By: #### 2 231862 #### [facility] [address] [place] [address] Creatinine [Mass/Vol] 0.9 mg/dL Normal 0.5-1.3 [facility] Comment on above: Performed By: #### 2 002332 #### [facility] [address] [place] [address] Globulin (S) [Mass/Vol] 2.8 g/dL Normal 1.4-4.0 [facility] Comment on above: Performed By: #### 2 051338 #### [facility] [address] [place] [address] Glucose [Mass/Vol] 95 mg/dL Normal 55-199 [facility] Comment on above: Performed By: #### 2 295785 #### [facility] [address] [place] [address] Potassium [Moles/Vol] 4.3 mmol/L Normal 3.5-5.3 [facility] Comment on above: Performed By: #### 2 146424 #### [facility] [address] [place] [address] Protein [Mass/Vol] 7.0 g/dL Normal 6.0-7.8 [facility] Comment on above: Performed By: #### 2 724169 #### [facility] [address] [place] [address] Sodium [Moles/Vol] 136 mmol/L Normal 135-145 [facility] Comment on above: Performed By: #### 2 602495 #### [facility] [address] [place] [address] Urea nitrogen [Mass/Vol] 20 mg/dL Normal 5-21 [facility] Comment on above: Performed By: #### 2 572095 #### [facility] [address] [place] [address] Urea nitrogen/Creatinine [Mass ratio] 22 No Units High 10-20 [facility] Comment on above: Performed By: #### 2 768451 #### [facility] [address] [place] [address] Lipid Panelon 10-24-2024 Cholesterol [Mass/Vol] 249 mg/dL High 120-200 [facility] Comment on above: Performed By: #### 2 317385 #### [facility] [address] [place] [address] Cholesterol in HDL [Mass/Vol] 37 mg/dL Invalid Interpretation Code [facility] Comment on above: Result Comment: '>= 60 LOW RISK' '<= 40 HIGH RISK' Performed By: #### 2 [id number] #### [facility] [address] [place] [address] Cholesterol in LDL [Mass/Vol] 183 mg/dL High <=129 [facility] Comment on above: Performed By: #### 2 130740 #### [facility] [address] [place] [address] Cholesterol in VLDL [Mass/Vol] 48 mg/dL High 7-40 [facility] Comment on above: Performed By: #### 2 375783 #### [facility] [address] [place] [address] Triglyceride [Mass/Vol] 240 mg/dL High <=149 [facility] Comment on above: Performed By: #### 2 322584 #### [facility] [address] [place] [address] eGFRon 10-24-2024 eGFR 76 mL/min/1.73 m2 Normal >=59 [facility] Comment on above: Performed By: #### 1 [id number] #### [facility] [address] [place] [address] Family Medicine Office/Clini c Noteon 10-23-2024 Family [...] are not painful, but she seeks a chemical maker referral. Her blood pressure is noted to [...] CBC w/ Auto Diff Comprehensive Metabolic Panel [facility] External Ambulatory Referral [facility] Referral Lipid Panel 2. Encounter for screening for malignant neoplasm of colon (Z12.11) Arrange for colonoscopy due to family history of colon cancer. Discussed preference for traditional colonoscopy over Cologuard screening to ensure comprehensive evaluation. Ordered: [facility] External Ambulatory Referral [facility] Ambulatory Referral 3. Other skin changes (R23.8) Referral to dermatology for evaluation of hyperpigmented spots with central redness and dryness for definitive diagnosis and management. Ordered: [facility] External Ambulatory Referral [facility] Internal Ambulatory Referral 4. Gastro-esophageal reflux disease without esophagitis (K21.9) Continue current medication regimen, monitor symptoms, and consider EGD with the colonoscopy to evaluate for any esophageal abnormalities given the nausea reported. Ordered: [facility] External Ambulatory Referral [facility] Internal Ambulatory Referral 5. Essential (primary) hypertension (I10) Continue current medication regimen, regular monitoring indicated to maintain optimal blood pressure control. Ordered: [facility] External Ambulatory Referral [facility] Ambulatory Referral Encounter for immunization (Z23: [...] 30 days (more content not included)... Normal [facility] Comment on above: Result Comment: Elec [...] (COVID-19) mRNA BNT-162b2 vax 03/13/2021 Recorded Normal [facility] Comment on above: Result Comment: Elec tronically Signed By: Zaid SPIVEY, Glenn Ibarra.br\Date and Time Signed: 10/16/24 17:44 EST XR finger RT 3rd digiton XR finger RT 3rd digit [place] [address] XRay Report Signed Patient: Meredith Byrd MR#: [id number] : 1970 Acct:[id number] Age/Sex: 53 / F ADM Date: 04/20/24 Loc: XDCLY Room: Type: REG REF Attending Dr: Primitivo Hu SENIOR CORPORATE ACCOUNTANT-C Copies to: Primitivo Hu VOCAL MUSIC TEACHER Ordering Provider: Primitivo Hu CNP Date of [...] Doug Duong M.D.04/20/2024 9:59 AM Dictation Location: [place] [address] Transcribed By: [facility] 04/20/24 0959 Dictated By: Doug Duong II, MD 04/20/24 0958 Signed By: 04/20/24 0959 Normal [facility] Family Medicine Office/Clini c Noteon [...] Daily, # 90 tab(s), Refills(s) 1, Pharmacy: [facility]/pharmacy #[id number], 158.9, cm, 04/13/24 15:23:00 EDT, Height/Length Dosing, 84.3, kg, 04/13/24 15:23:00 EDT, Weight Dosing naproxen, See Instructions, TAKE 1 TABLET BY MOUTH TWICE A DAY, # 60 tab(s), Refills(s) 0, Pharmacy: [facility] STORE 41302, 159, cm, 01/31/24 15:55:00 EST, Height/Length Dosing, [...] mRNA BNT-162b2 vax 03/13/2021 Recorded Normal [facility] Comment on above: Result Comment: Elec tronically Signed By: Zaid SIPVEY, Glenn Ibarra.br\Date and Time Signed: 04/13/24 15:45 EDT Patient [...] numbers. This can be done either in [place] ([place] or metric measurements. Note that charts and online BMI calculators are available to help you find your BMI quickly and easily without having to do these calculations yourself. To calculate your BMI in [place] ([place] measurements: 1. Measure your weight in [...] for Disease Control and Prevention: www.cdc.gov ? [place] [employer]: www.heart.org ? National Heart, Lung, and Blood [place]: www.nhlbi.nih.gov Summary ? Body mass index (BMI) is a number that is calculated from a person's weight and height. ? BMI may help estimate how much of a person's weight is composed of fat. BMI can help identify those who may be at higher risk for certain medical problems. ? BMI can be measured using Malian measurements or metric measurements. ? BMI charts are used to identify whether you are underweight, normal weight, overweight, or obese. This information is not intended to replace advice given to you by your health care provider. Make sure you discuss any questions you have with your health care provider. Document Revised: 08/07/2020 Document Reviewed: 06/14/2020 51fanli Patient Education ? 2022 [employer]. Normal [facility] Discharge Note - PTon 2023 Discharge Note - PT [id number] #1.00TIFF Normal [facility] Family Medicine Office/Clini c Noteon 03-15-2024 [...] Daily, # 90 tab(s), Refills(s) 0, Pharmacy: [facility]/pharmacy #[id number], 158.9, cm, 03/15/24 7:44:00 [...] (COVID-19) mRNA BNT-162b2 vax 03/13/2021 Recorded Normal [facility] Comment on above: Result Comment: Elec tronically Signed By: Zaid SPIVEY, Glenn Ibarra.br\Date and Time Signed: 03/15/24 15:45 EDT Dexa Scanson 02-22-2024 Dexa Scans [id number] #1.00TIFF Normal [facility] Outside Mammographyon 2023 Outside Mammography [id number] #1.00TIFF Normal [facility] Cytology Cervical or vaginal smear or scraping studyOrdered By: Traci Manning on 01-20-2024 [facility] Vital Signs Date Time Vital Sign Value Performing Clinician Facility 01-24-2025 15:45-0500 Body mass index (BMI) [Ratio] 36.03 kg/m2 Yenny BERMUDEZ Work Phone: [facility] 01-24-2025 15:45-0500 Body weight 92.26 kg Yenny BERMUDEZ Work Phone: [facility] 01-24-2025 15:45-0500 Diastolic blood pressure 72 mm[Hg] Yenny BERMUDEZ Work Phone: [facility] 01-24-2025 15:45-0500 Systolic blood pressure 120 mm[Hg] Yenny BERMUDEZ Work Phone: [facility] 12-14-2024 14:19-0500 Blood Pressure Location [facility] 12-14-2024 14:19-0500 Diastolic blood pressure 90 mm[Hg] Korey Izquierdomini [facility] 12-14-2024 14:19-0500 Heart rate 94 /min Korey Izquierdomini [facility] 12-14-2024 14:19-0500 Respiratory rate 14 /min Korey Izquierdomini [facility] 12-14-2024 14:19-0500 Systolic blood pressure 126 mm[Hg] Korey Izquierdomini [facility] Encounters Encounter Date Encounter Type Care Provider Facility Start: 01-24-2025 End: 01-24-2025 ambulatory YENNY CASTILLO Not Available Start: 01-24-2025 End: 01-24-2025 Patient encounter procedure Yenny BERMUDEZ Work Phone: [facility] Work Phone: Start: 01-24-2025 End: 01-24-2025 Periodic preventive med est patient 40-64yrs Yenny BERMUDEZ Work Phone: [facility] Comment on above: Well woman exam with routine gynecological exam; Breast cancer screening by mammogram Start: 01-24-2025 End: 01-24-2025 Bamboo flowsheet Yenny BERMUDEZ Work Phone: [facility] Start: 01-24-2025 End: 01-29-2025 Bamboo flowsheet Yenny BERMUDEZ Work Phone: [facility] Start: 01-24-2025 End: 01-29-2025 Clinisync Result Encounter Yenny BERMUDEZ Work Phone: [facility] Unsolicited Start: 12-27-2024 End: 12-27-2024 ambulatory Korey Mcguire Facility:[facility] Start: 12-27-2024 End: 12-27-2024 Patient encounter procedure Korey Galeanai [facility] Start: 12-26-2024 End: 12-26-2024 ambulatory Nair Talal Sarmini Facility:[facility] Start: 12-26-2024 End: 12-26-2024 Lab Drop off Nair Talal Sarmini [facility] Start: 12-26-2024 End: 12-26-2024 ambulatory Nair Talal Sarmini Facility:[id number] Start: 12-15-2024 ambulatory Nair Sarmini Facili ty:[facility] Start: 12-14-2024 End: 12-14-2024 ambulatory Nair Talal Sarmini Facility:[facility] Start: 12-14-2024 End: 12-14-2024 Patient encounter procedure Nair Talal Sarmini [facility] Start: 10-23-2024 End: 10-23-2024 Lab Drop off Glenn Mar [facility] Start: 10-23-2024 End: 10-23-2024 ambulatory Glenn Mar Facility:[place] Start: 10-16-2024 End: 10-16-2024 ambulatory Glenn Mar Facility:[facility] Start: 04-20-2024 End: 04-20-2024 Departed Referred SENIOR CORPORATE ACCOUNTANT-C Primitivo Hu Work Phone: [facility] Work Phone: Start: 04-20-2024 End: 04-20-2024 ambulatory PHYSICIAN SHAUN BRANDT [facility] Work Phone: Start: 04-13-2024 End: 04-13-2024 ambulatory Glenn Mar Facility: [facility] Start: 03-14-2024 End: 03-14-2024 ambulatory Glenn Mar Facility:[facility] [place] Start: 12-31-2023 End: 12-31-2023 Patient encounter procedure Glenn Mar [facility] Procedures Date Procedure Procedure Detail Performing Clinician Start: 01-24-2025 IGP,APTIMA HPV,AGE GDLN Yenny BERMUDEZ Work Phone: Start: 04-20-2024 X-ray of middle finger SENIOR CORPORATE ACCOUNTANT-C Primitivo Hu Work Phone: Start: 02-16-2024 Mammography Yenny BERMUDEZ Work Phone: Start: 01-20-2024 Microscopic observat ion [Identifier] in Cervix by Cyto stain Yenny BERMUDEZ Work Phone: Start: 01-20-2024 Cytp cerv/vag auto t hin layer prep mnl screen Yenny BERMUDEZ Work Phone: Appendectomy Glenn Mar Tonsillectomy Glenn Mar Plan of Treatment Date Care Activity Detail Author Start: 01-20-2029 Screening for malignant neoplasm of cervix [facility] Start: 01-28-2026 End: 01-28-2026 Patient encounter procedure 01/28/2026 9:00 AM EST Office Visit [facility] [address] [place] [address] Yenny Castillo PA [address] [place] [address] [facility] Start: 04-16-2025 ambulatory Ambulatory Facility:[facility] Start: 02-15-2025 Screening for malignant neoplasm of breast Mammogram [facility] Start: 01-24-2025 End: 03-24-2026 MG Breast - bilateral Screening Bilateral screening mammogram Imaging Routine Breast cancer screening by mammogram Expected: 01/24/2025, Expires: 03/24/2026 [facility] Work Phone: Comment on above: Expected: 01/24/2025 , Expires: 03/24/2026 Start: 1970 Screening for malignant neoplasm of colon [facility] THIN PREP TIS PAP AN D HR HPV DNA THIN PREP TIS PAP AND HR HPV DNA Pathology and Cytology Routine Well woman exam with routine gynecological exam Ordered: 01/24/2025 [facility] Comment on above: Ordered: 01/24/2025 Immunizations Immunization Date Immunization Notes Care Provider Maria alejandro 10-23-2024 influenza, seasonal, injectable, preservative free; Translations: [Fluzone TIV PF ] Glenn Mar [facility] 04-03-2021 SARS-CoV-2 (COVID-19 ) mRNA BNT-162b2 vax Glenn Zaid [facility] 03-13-2021 SARS-CoV-2 (COVID-19 ) mRNA BNT-162b2 flx Glenn Mar [facility] Payers Date Payer Category Payer Self-pay 2024 Unknown [id number] 2023 Private Health Insurance [facility] [id number] 2023 Unknown [id number] 1970 Unknown [id number] [id number]. 2.727 1970 Unknown [id number] 2.16.840.1.557447.3.579. 2.1259 1970 Unknown [id number] 2.16.840.1.872919.3.579. 2.727 1970 Unknown [id number] 2.16.840.1.053661.3.579. 2.727 1970 Unknown [id number] 2.16.840.1.294735.3.579. 2.727 1970 Unknown [id number] 2.16.840.1.923116.3.579. 2.727 1970 Unknown [id number] 2.16.840.1.490827.3.579. 2.727 1970 Unknown [id number] 2.16.840.1.418482.3.579. 2.727 1970 Unknown [id number] 2.16.840.1.407283.3.579. 2.727 1970 Unknown [id number] 2.16.840.1.240527.3.579. 2.727 1970 Unknown [id number] 2.16.840.1.748399.3.579. 2.727 Unknown [place] [employer] [id number] Unknown [id number] [id number]. 2.531 Social History Date Type Detail Facility Start: 12-21-2023 End: 12-14-2024 Tobacco smoking status Ex-smoker (finding) [facility] [place] Sex Assigned At Female [facility] Start: 1970 Sex Assigned At Female [facility] Tobacco smoking status NHIS Tobacco smoking consumption unknown [facility] Start: 1970 Sex assigned at Not on file [facility] Functional Status Date Assessment Result Facility 12-14-2024 Functional Status N/A [facility] Clinical Notes 01-24-2025 AIDAN Leung - 01/24/2025 3:30 PM [facility]atoryLabor[facility]iology[facility]atoryRadiology[facility] Note Date & Type Note Facility 01-24-2025 History of Present illness Narrative Reason for Appointment: Patient ID: Meredith Byrd is a 54 y.o. female who presents for Well Women Visit Patient presents today for Annual Exam. MEDICATIONS Current Outpatient Medications Medication Instructions atorvastatin (LIPITOR) 40 mg, Daily Calcium Carb-Cholecalciferol (CALTRATE 600+D3 PO) 1 each, Daily hydroCHLOROthiazide (HYDRODIURIL) 25 mg, Daily losartan (COZAAR) 100 mg, Daily omeprazole (PRILOSEC) 40 mg ALLERGIES No Known Allergies PROBLEMS Active Ambulatory Problems Diagnosis Date Noted No Active Ambulatory Problems Resolved Ambulatory Problems Diagnosis Date Noted No Resolved Ambulatory Problems No Additional Past Medical History HISTORY PAST MEDICAL HISTORY SOCIAL HISTORY History reviewed. No pertinent past medical history. Social History Tobacco Use Smoking status: Not on file Smokeless tobacco: Not on file Substance Use Topics Alcohol use: Not on file Drug use: Not on file FAMILY HISTORY No family history on file. SURGICAL HISTORY Past Surgical History: Procedure Laterality Date APPENDECTOMY COLONOSCOPY EGD TUBAL LIGATION REVIEW OF SYSTEMS Review of Systems: Review of Systems Constitutional: Negative. HENT: Negative. Eyes: Negative. Respiratory: Negative. Cardiovascular: Negative. Gastrointestinal: Negative. Genitourinary: Negative. Musculoskeletal: Negative. Skin: Negative. Neurological: Negative. All other systems reviewed and are negative. Hematological: Negative. Endocrine: Negative. Allergic/Immunologic: Negative. OBJECTIVE Objective: Physical Exam Constitutional: Appearance: Normal appearance. She is well-developed. Genitourinary: Vulva normal. Right Adnexa: not tender and no mass present. Left Adnexa: not tender and no mass present. No cervical discharge. Breasts: Breasts are soft. Right: Normal. Left: Normal. HENT: Head: Normocephalic. Nose: Nose normal. Mouth/Throat: Mouth: Mucous membranes are moist. Cardiovascular: Rate and Rhythm: Normal rate and regular rhythm. Pulmonary: Effort: Pulmonary effort is normal. Breath sounds: Normal breath sounds. Abdominal: General: Bowel sounds are normal. There is no distension. Palpations: Abdomen is soft. Tenderness: There is no abdominal tenderness. There is no guarding or rebound. Musculoskeletal: General: No swelling. Normal range of motion. Cervical back: Normal range of motion. Right lower leg: No edema. Left lower leg: No edema. Neurological: General: No focal deficit present. Mental Status: She is alert and oriented to person, place, and time. Skin: General: Skin is warm and dry. Psychiatric: Mood and Affect: Mood normal. Behavior: Behavior normal. Vitals and nursing note reviewed. Exam conducted with a viner operator present. Vitals: Estimated body mass index is 36.03 kg/m as calculated from the following: Height as of 01/20/24: 5' 3 . Weight as of this encounter: 203 lb 6.4 oz. BP: 120/72 No LMP recorded (within months). ASSESSMENT & PLAN ICD-10-CM 1. Well woman exam with routine gynecological exam Z01.419 THIN PREP TIS PAP AND HR HPV DNA 2. Breast cancer screening by mammogram Z12.31 Bilateral screening mammogram Bilateral screening mammogram Annual: Patient presents today for an annual exam. Patient states she is doing well and has no complaints. Pap was obtained without difficulty and patient given mammogram order to have scheduled/obtained. Orders Placed This Encounter Procedures Bilateral screening mammogram Follow Up: Patient is to return in one year for annual unless needed otherwise. Documented by Shy Diop LPN on behalf of: AIDAN Leung documented in this encounter [facility] Evaluation + Plan note Future Appointments Appointment Date:01/31/2024 04:00:00 PM Scheduled Provider:Glenn Mar MD Location:[facility] Appointment Type: Open [facility] Evaluation + Plan note Future Appointments Appointment Date:04/16/2025 03:30:00 PM Scheduled Provider:Glenn Mar MD Location:[facility] Appointment Type: Open Diagnostic Tests PendingCBC w/ Auto Diff 10/23/24Comprehensive Metabolic Panel 10/23/24Lipid Panel 10/23/24 Future Scheduled TestsCBC w/ Auto Diff 03/15/24Comprehensive Metabolic Panel 03/15/24Lipid Panel 03/15/24 [facility] Evaluation + Plan note Future Appointments Appointment Date:04/16/2025 03:30:00 PM Scheduled Provider:Glenn Mar MD Location:[facility] Appointment Type: Open Future Scheduled TestsCBC w/ Auto Diff 03/15/24Comprehensive Metabolic Panel 03/15/24Lipid Panel 03/15/24NM Gastric Emptying Study 12/14/24 [facility] Evaluation + Plan note Future Appointments Appointment Date:12/27/2024 11:00:00 AM Scheduled Provider: Location:[facility] Appointment Type:NM Gastric Emptying Study () Appointment Date:04/16/2025 03:30:00 PM Scheduled Provider:Glenn Mar MD Location:[facility] Appointment Type: Open Future Scheduled TestsCBC w/ Auto Diff 03/15/24Comprehensive Metabolic Panel 03/15/24Lipid Panel 03/15/24NM Gastric Emptying Study 12/27/24 [facility] Evaluation + Plan note Future Appointments Appointment Date:04/16/2025 03:30:00 PM Scheduled Provider:Glenn Mar MD Location:[facility] Appointment Type: Open Future Scheduled TestsCBC w/ Auto Diff 03/15/24Comprehensive Metabolic Panel 03/15/24Lipid Panel 03/15/24 [facility] Evaluation note No assessment inform ation available [facility] Work Phone: Evaluation note Diagnosis Well woman exam with routine gynecological exam Routine gynecological examination Breast cancer screening by mammogram documented in this encounter [facility] Narrative No data available for this section [facility] No data available for this section [facility] No data available for this section [facility] Summary Purpose Family History No Family [...] Team Status: Inactive Member Role Status Dates Primitivo Aaron Hu , SENIOR CORPORATE ACCOUNTANT-C Attending Provider Active Start: April 20, 2024 End: April 20, 2024 Flute Polisher Relationship Specialty Start Date End Date Glenn Mar MD [address] [phone] PCP - General Family Medicine 01/20/24 Flute Polisher Relationship Specialty Start Date End Date Glenn Mar MD [address] [phone] PCP - General Family Medicine 01/20/24 Flute Polisher Relationship Specialty Start Date End Date Glenn Mar MD [address] [place] [address] PCP - General Family Medicine 01/20/24 Goals (unrecognized section and content) Goals may be documented in a n alternate section INFORMATION SOURCE (unrecogn ized section and content) DATE CREATED AUTHOR 05/09/2024 [facility] DATE CREATED AUTHOR AUTHOR'S ORGANIZ ATION 10/27/2024 [facility] DATE CREATED AUTHOR AUTHOR'S ORGANIZ ATION 12/31/2024 [facility] DATE CREATED AUTHOR AUTHOR'S ORGANIZ ATION 01/05/2025 [facility] DATE CREATED AUTHOR AUTHOR'S ORGANIZ ATION 01/26/2025 [facility] DATE CREATED AUTHOR AUTHOR'S ORGANIZ ATION 02/04/2025 [facility] DATE CREATED AUTHOR AUTHOR'S ORGANIZ ATION 02/12/2025 [facility] Reason for Visit (unrecogniz ed section and content) Reason Comments Well Women Visit FOR RECORDS PERTAINING TO PATIENTS WHO ARE [...] BE BASED ON THE PRIMARY CLINICAL RECORDS. [facility] [employer] [facility]. provides no warranty or guarantee of the accuracy or completeness of information in this document.
--- NOTE | 2025-02-16 07:45 | MM_ITS ---
Patient Name: MEREDITH BAILEY MR#: [id number] : 1970 Exam Date: 02/16/2025 Ordering Doctor: AIDAN Cheng . RADIOLOGY REPORT PROCEDURE: MM TOMOSYNTHESIS SCREENING BI COMPARISON: MM TOMOSYNTHESIS SCREENING BI, 02/15/2024. INDICATIONS: Screening Calculator Name NCI Breast Cancer Risk Assessment Tool 5 Year Breast Cancer Risk 0.90% Lifetime Breast Cancer Risk 6.70% Personal Breast Cancer No Personal Ovarian Cancer No Treatments None Family Cancers Mother with ovarian cancer at age 25; Father with colon cancer at age 60. LOCATION: [facility] BREAST COMPOSITION: The breasts are heterogeneously dense,which may obscure small masses. FINDINGS: DIAGNOSTIC CATEGORY 1--NEGATIVE. LEFT BREAST: No significant suspicious finding. RIGHT BREAST: No significant suspicious finding. RECOMMENDATIONS: ROUTINE MAMMOGRAM AND CLINICAL EVALUATION IN 12 MONTHS. PLEASE NOTE: A NORMAL MAMMOGRAM DOES NOT EXCLUDE THE POSSIBILITY OF BREAST CANCER. A CLINICALLY SUSPICIOUS PALPABLE LUMP SHOULD BE BIOPSIED. Dictated by: Noah Salinas DO on 02/16/2025 at 16:22 Approved by: Noah Salinas DO on 02/16/2025 at 16:27
== END 2025-02-16 07:17 | disposition home or self-care (01) ==
LOC: MAMMO 07:16
PROVIDERS: PCP Family Medicine; Visit Provider Physician Assistant
DX: Z12.31 Encounter for screening mammogram for malignant neoplasm of breast (principal); Z80.41 Family history of malignant neoplasm of ovary; Z80.0 Family history of malignant neoplasm of digestive organs
CPT/HCPCS: 77063; 77067

== ENCOUNTER 2025-02-21 10:56 | Outpatient (OUT) | payer OTHER, SELFPAY ==
--- NOTE | 2025-02-21 11:15 | XR_ITS ---
The [address] [address] Patient Name: MEREDITH BAILEY MRN: [id number] date: 1970 Sex: F Assigned Patient Location: [facility] Current Patient Location: [facility] Accession/Order Number: [id number] Exam Date: 02/21/2025 15:23 Report Date: 02/21/2025 15:23 At the request of: IRMA CAMPBELL Procedure: XR chest 2V Chest 2 views CLINICAL HISTORY: Cough, Shortness Of Breath COMPARISON: None FINDINGS: Heart normal size. Lungs are clear. No free air. XR/XR chest 2V IMPRESSION: NO ACUTE CARDIOPULMONARY ABNORMALITY. Impression dictated by: Noah Salinas Jr., D.O.02/21/2025 3:23 PM Dictation Location: [place] [address] Electronically authenticated by: [id number] Y Date: 02/21/2025 15:23
== END 2025-02-21 10:57 | disposition home or self-care (01) ==
LOC: RAD 10:57
PROVIDERS: PCP Family Medicine; Visit Provider Nurse Practitioner
DX: R05.9 Cough, unspecified (principal); R06.02 Shortness of breath
CPT/HCPCS: 71046